=== PATIENT | female | born 1985 | race Caucasian/White ===

== ENCOUNTER → 2016-03-12 | Outpatient (CLI) | payer OTHER ==
[~2016-03-12] MED LIST: BCPILLS PO; FERR1TAB23; OXYC-57 PO; PRENTAB26 PO
[2016-03-12 12:52] LABS: GTGD 50 Grams
[2016-03-13 12:18] LABS: AFP CONCENTRATION 17.5 NG/ML; AFP MULTIPLE OF MEDIAN 0.51; AFPTS GESTATIONAL AGE 18.1 WEEKS; AFPTS INSULIN DEP DIABETIC? NO; AFPTS MATERNAL WT 218 LBS; ALPHA-FETOPROTEIN RACE CAUCASIAN=W; HISTORY OF NTD NO; REPEAT SAMPLE? NO
== END | disposition home or self-care (01) ==
LOC: C.LAB1850 09:20
PROVIDERS: ATTEND Obstetrics & Gynecology
DX: Z34.82 Encounter for supervision of other normal pregnancy, second trimester (principal)

== ENCOUNTER → 2016-05-28 | Outpatient (CLI) | payer OTHER ==
[2016-05-28 11:09] LABS: HEMATOCRIT 32.6 % (37-47)
[2016-05-28 11:56] LABS: URINE APPEARANCE CLEAR (CLEAR); URINE BILIRUBIN NEG (NEG); URINE COLOR YELLOW; URINE EPITHELIAL CELL AUTO >30 /lpf (0-5); URINE NITRITE NEG (NEG); URINE SPECIFIC GRAVITY 1.013 (1.000-1.030); UROBILINOGEN NEG (NEG)
[2016-05-28 12:00] LABS: MANUAL MICROSCOPIC REQUIRED? NO; REVIEW REQ? NO
[2016-05-28 12:17] LABS: GTGD 50 Grams
== END | disposition home or self-care (01) ==
LOC: C.LAB1850 10:10
PROVIDERS: ATTEND Obstetrics & Gynecology
DX: Z34.83 Encounter for supervision of other normal pregnancy, third trimester (principal)

== ENCOUNTER → 2016-06-05 | Outpatient (CLI) | payer OTHER | END | disposition home or self-care (01) | LOC: C.CPL 14:15 | PROVIDERS: ATTEND Obstetrics & Gynecology | DX: O36.8991 Maternal care for other specified fetal problems, unspecified trimester, fetus 1 (principal); Z3A.00 Weeks of gestation of pregnancy not specified ==

== ENCOUNTER → 2016-07-16 | Outpatient (CLI) | payer OTHER | END | disposition home or self-care (01) | LOC: C.LABSPEC 14:28 | PROVIDERS: ATTEND Obstetrics & Gynecology | DX: Z34.83 Encounter for supervision of other normal pregnancy, third trimester (principal) ==

== ENCOUNTER 2016-08-18 15:18 | Inpatient (IN) | payer OTHER ==
[~2016-08-18] VITALS: Ht 167.6 cm; Wt 110.5 kg
[2016-08-18] MEDS ORDERED: FERR1TAB23 (16:21)
[2016-08-18] MEDS ORDERED: PRENTAB26 PO (16:21)
[2016-08-18 16:23] VITALS: Ht 167.6 cm; Wt 110.5 kg
[2016-08-18 16:32] LABS: MANUAL MICROSCOPIC REQUIRED? NO; REVIEW REQ? NO; URINE APPEARANCE CLOUDY (CLEAR); URINE BILIRUBIN NEG (NEG); URINE COLOR YELLOW; URINE EPITHELIAL CELL AUTO >30 /lpf (0-5); URINE NITRITE NEG (NEG); URINE SPECIFIC GRAVITY 1.015 (1.000-1.030); UROBILINOGEN NEG (NEG); ZZUR CULT IF INDIC CLEAN CATCH YES
[2016-08-18] MEDS ORDERED: LACTATED RINGER'S 1000ML 1,000 ML IV PRN (17:24)
[2016-08-18] MEDS ORDERED: LACTATED RINGER'S 1000ML 1,000 ML IV SCH (17:24)
[2016-08-18] MEDS ORDERED: BUPIVACAINE 0.25% 30 ML VIAL ONE (17:40)
[2016-08-18] MEDS ORDERED: FENTANYL 2MCG/ML ROPIV 1.25MG/ML 100ML BAG EPI ONE (17:41)
[2016-08-18] MEDS ORDERED: EpHEDrine SULFATE INJ 50 MG/ML AMP ONE (17:41)
[2016-08-18] MEDS ORDERED: FENTANYL CITRATE INJ 50 MCG/1 ML 2 ML VIAL ONE (17:41)
[2016-08-18] MEDS ORDERED: OXYTOCIN 30 UNITS/500ML NSS IV ONE (17:51)
[2016-08-18 18:02] LABS: HEMATOCRIT 34.5 % (37-47); MEAN CORPUSCULAR HEMOGLOBIN 28.6 pg (25-34); MEAN CORPUSCULAR HGB CONC 32.5 g/dl (32-36); MEAN PLATELET VOLUME 9.6 fL (7.4-10.4); PLATELET COUNT 369 K/uL (130-400); RED BLOOD COUNT 3.92 M/uL (4.2-5.4); WHITE BLOOD COUNT 15.74 K/uL (4.8-10.8)
[2016-08-18] MEDS ORDERED: LACTATED RINGER'S 1000ML 500 ML IV PRN (18:50)
[2016-08-18] MEDS ORDERED: NALOXONE HCL INJ 1 MG in SODIUM CHLORIDE 0.9% 1000ML 1,000 ML IV PRN (18:50)
[2016-08-18] MEDS ORDERED: EpHEDrine SULFATE INJ 50 MG/ML AMP IV PRN (19:00)
[2016-08-18] MEDS ORDERED: FENTANYL 2MCG/ML ROPIV 1.25MG/ML 100ML BAG EPI PRN (19:00)
[2016-08-18] MEDS ORDERED: PROMETHAZINE HCL INJ 6.25 MG in SODIUM CHLORIDE 0.9% 50ML 50 ML IV PRN (19:00)
[2016-08-18] MEDS ORDERED: NALOXONE HCL INJ 0.4 MG/1 ML VIAL/CARP IV PRN (19:00)
[2016-08-18] MEDS ORDERED: ONDANSETRON INJ 2 MG/ML 2 ML VIAL IV PRN (19:00)
[2016-08-18] MEDS ORDERED: DiphenhydrAMINE HCL 50 MG/ML VIAL IV PRN (19:00)
[2016-08-18] MEDS ORDERED: NALBUPHINE HCL INJ 10 MG/ML AMP IV PRN (19:00)
[2016-08-18] MEDS: AMPICILLIN IV 2,000 MG in SODIUM CHLOR 0.9% AD-VAN 100ML 100 ML IV SCH (23:52)
[2016-08-19] VITALS (7 sets, daily range): BP systolic 116–132; BP diastolic 74–87; PULSE 77–99; TEMP 36.6–37.9; O2SAT 96–99
[2016-08-19] MEDS ORDERED: HYDROCORTISONE ACETATE 25 MG SUPP PR PRN (00:30)
[2016-08-19] MEDS ORDERED: OXYTOCIN 30 UNITS/500ML NSS IV PRN (00:30)
[2016-08-19] MEDS ORDERED: BENZOCAINE 20% AER SPR 82.5 GM CAN EXT PRN (00:30)
[2016-08-19] MEDS ORDERED: LANOLIN OINT EXT PRN ×2 (00:30)
[2016-08-19] MEDS ORDERED: IBUPROFEN 600 MG TAB PO PRN (00:30)
[2016-08-19] MEDS ORDERED: SUPERCREAM 0.870 % 15GM JAR EXT PRN (00:30)
[2016-08-19] MEDS ORDERED: OXYCODONE/ACETAMINOPHEN 5-325 TAB PO PRN (00:30)
[2016-08-19] MEDS ORDERED: GENTAMICIN IV SCH (01:00)
[2016-08-19] MEDS ORDERED: DEXTROSE 5% IV SCH (01:00)
[2016-08-19] MEDS: ACETAMINOPHEN 325 MG TAB PO PRN ×2 (01:00→12:28)
[2016-08-19] MEDS: DEXTROSE 5% IV SCH ×3 (02:25→18:43)
[2016-08-19] MEDS: GENTAMICIN IV SCH ×3 (02:25→18:43)
[2016-08-19] MEDS: AMPICILLIN IV 2,000 MG in SODIUM CHLOR 0.9% AD-VAN 100ML 100 ML IV SCH ×3 (05:48→18:07)
[2016-08-19] MEDS ORDERED: ACETAMINOPHEN 500 MG TAB PO SCH (06:00)
--- NOTE | 2016-08-19 07:40 | Progress Note ---
Subjective Aug 19, 2016. Subjective conversation w/ patient, physical exam Ambulation: ambulating normally Voiding: no voiding problems Passing Gas: Yes Diet Tolerance: Regular Diet Lochia: Moderate Feeding Type: Bottle Feeding Pain: controlled Review of Systems Constitutional: No problem reported Respiratory: No problem reported Cardiac: No problem reported Breast: No problem reported Abdomen: No problem reported Female : No problem reported Objective Vital Signs Date Time Temp Pulse Resp B/P (MAP) Pulse Ox O2 Delivery O2 Flow Rate FiO2 08/19/16 07:00 36.8 77 20 116/74 (88) 98 Room Air 08/19/16 03:30 37.0 94 18 129/79 (96) 96 Room Air 08/19/16 02:30 37.9 99 18 132/77 (95) Room Air 08/19/16 02:30 Room Air Physical Exam General Appearance: WELL-APPEARING, NO APPARENT DISTRESS Respiratory/Chest: no respiratory distress Cardiovascular: regular rate, rhythm Abdomen: non tender, soft Fundus: Firm Extremities: normal inspection Laboratory Results Last 24 Hours Test 08/18/16 17:50 White Blood Count 15.74 K/uL Red Blood Count 3.92 M/uL Hemoglobin 11.2 g/dL Hematocrit 34.5 % Mean Corpuscular Volume 88.0 fL Mean Corpuscular Hemoglobin 28.6 pg Mean Corpuscular Hemoglobin Concent 32.5 g/dl RDW Standard Deviation 50.8 fL RDW Coefficient of Variation 15.7 % Platelet Count 369 K/uL Mean Platelet Volume 9.6 fL Assessment and Plan Day#: 1 Continue Routine Care: PPD#1 - at 11:57pm last night Doing well, no complaints. Continue routine care.
[2016-08-19] MEDS: DOCUSATE SODIUM 100 MG CAP PO SCH ×2 (07:53→19:41)
--- NOTE | 2016-08-19 08:22 | Anesthesia Procedure Note ---
Anesthesia Epidural Removal Nt Date & Time Aug 19, 2016 at 08:22 Vital Signs Pain Intensity: 1.0 Vital Signs Past 12 Hours Date Time Temp Pulse Resp B/P (MAP) Pulse Ox O2 Delivery O2 Flow Rate FiO2 08/19/16 07:00 36.8 77 20 116/74 (88) 98 Room Air 08/19/16 03:30 37.0 94 18 129/79 (96) 96 Room Air 08/19/16 02:30 37.9 99 18 132/77 (95) Room Air 08/19/16 02:30 Room Air Notes Mental Status: alert / awake / arousable, participated in evaluation Nausea / Vomiting: adequately controlled Pain: adequately controlled Airway Patency, RR, SpO2: stable & adequate BP & HR: stable & adequate Hydration State: stable & adequate Neuraxial Anesthesia: was administered Anesthetic Complications: no major complications apparent, pt satisfied with anesthetic care Epidural: removed without complications, with tip intact
--- NOTE | 2016-08-19 11:45 | DELIVERY SUMMARY ---
DATE OF OPERATION: 08/18/2016 DATE OF DELIVERY: 08/18/2016. ESTIMATED BLOOD LOSS: 300 mL. FINDINGS: Viable male with Apgars of 8 and 9. Weight is pending; please see nursery records. Thick meconium and chorioamnionitis. PROCEDURE: Spontaneous vaginal delivery. DESCRIPTION OF DELIVERY: The patient progressed to complete with epidural anesthesia. There was maternal and tachycardia; therefore ampicillin and gentamicin were started. Ampicillin was started prior to delivery and delivery happened prior to the ability to start gentamicin as well. These will be continued for 24 hours post delivery for chorioamnionitis. The patient progressed to complete with epidural anesthesia and labored down due to maternal exhaustion. She then began to feel extreme pressure and began to push. The baby delivered from a cephalic presentation with the head in left occiput anterior position. The head delivered, followed by the anterior shoulder, followed by the posterior shoulder and followed by the body. She was preemptively placed in Ness position for delivery due to suspicion of large baby and concern for potential shoulder dystocia, although this did not occur. The baby was warmed and dried, placed on the mother's abdomen and a spontaneous cry was heard. The cord was doubly clamped and cut. Segment was retained for cord gases. The baby was handed off to the waiting pediatrics team. The placenta was delivered spontaneously intact with a 3-vessel cord. Membranes were noted to be stained with meconium. The uterus and vagina were cleared of all clots and debris. Pitocin was given and the uterus began to become firm. The cervix, vagina and perineum were inspected; no ulcerations were noted. The mother and baby recovered well in the room. Sponge, instruments and needle counts were correct x2 at the conclusion of the delivery. I attest to the content of the Intraoperative Record and any orders documented therein. Any exception s are noted below.
[2016-08-20] VITALS (7 sets, daily range): BP systolic 111–142; BP diastolic 60–88; PULSE 76–90; TEMP 36.7–37.1; O2SAT 96–100
[2016-08-20 07:05] LABS: HEMATOCRIT 30.8 % (37-47)
--- NOTE | 2016-08-20 07:49 | Progress Note ---
Subjective Aug 20, 2016. Subjective conversation w/ patient, physical exam Ambulation: ambulating normally Voiding: no voiding problems Passing Gas: Yes Diet Tolerance: Regular Diet Lochia: Moderate Feeding Type: Bottle Feeding Pain: controlled Review of Systems Constitutional: No problem reported Respiratory: No problem reported Cardiac: No problem reported Breast: No problem reported Abdomen: No problem reported Female : No problem reported Objective Vital Signs Date Time Temp Pulse Resp B/P (MAP) Pulse Ox O2 Delivery O2 Flow Rate FiO2 08/20/16 04:20 36.7 84 18 127/82 (97) 97 Room Air 08/19/16 23:00 97 Room Air 08/19/16 23:00 36.7 84 18 126/85 (99) 97 Room Air 08/19/16 19:45 36.6 81 18 128/84 (99) 99 Room Air 08/19/16 16:15 Room Air 08/19/16 16:15 36.7 93 20 128/87 (101) 98 Room Air 08/19/16 12:10 36.9 80 20 127/82 (97) 97 Room Air 08/19/16 08:00 Room Air Physical Exam General Appearance: WELL-APPEARING, NO APPARENT DISTRESS Respiratory/Chest: no respiratory distress Cardiovascular: regular rate, rhythm Abdomen: non tender, soft Fundus: Firm Extremities: normal inspection Laboratory Results Last 24 Hours Test 08/20/16 06:33 Hemoglobin 9.9 g/dL Hematocrit 30.8 % Assessment and Plan Day#: 2 Continue Routine Care: Doing well PPD#2. Discharge to home today, instructions discussed. Followup 6w in office.
--- NOTE | 2016-08-20 07:51 | Discharge Instructions ---
Discharge Instructions Date of Service Aug 20, 2016. Admission Reason for Admission: Labor Check Discharge Discharge Diagnosis / Problem: s/p vaginal delivery Discharge Goals Goal(s): Routine recovery after delivery Activity Recommendations Activity Limitations: per Instructions/Follow-up section . Instructions / Follow-Up Instructions / Follow-Up ACTIVITY RECOMMENDATIONS: * Gradual return to full activity over the next 2-3 weeks. * No lifting - nothing heavier than baby over the next 2-3 weeks. * Do not engage in vigorous exercise, sexual activity or sports until cleared by your physician. * Do not drive or operate any motorized equipment until cleared by your physician. * You may shower/bathe daily. MEDICATIONS: For discomfort or pain, you may use Acetaminophen (Tylenol), Ibuprofen (Advil), or Naproxen (Aleve) following the package directions. For constipation you may use Colace following the package directions. BREAST CARE: If you are not breast feeding: * Wear a supportive bra 24 hours a day for one to two weeks. * Avoid stimulating your breasts and nipples as much as possible during the first few weeks after delivery. * When taking a shower, have the warm water hit your back, not breasts. * When your breasts feel full, apply ice packs. Usually three to four times a day helps ease the discomfort. * Take a mild pain medication (Tylenol / Motrin) when you are uncomfortable. If breast feeding: * Use breast milk to lubricate nipples. Lansinoh cream may be used for sore nipples. You do not need to remove cream prior to breast feeding. If using a different brand of cream, check the label for directions regarding removal of cream prior to nursing. * Wear a supportive bra. * If having problems with breasts or breast feeding, call a construction safety consultant or your health care provider. EPISIOTOMY CARE: After delivery, if you have an episiotomy (stitches), the following steps will ease discomfort and aid healing. * For the first 24 hours after delivery, place ice packs next to your episiotomy to help reduce swelling. * After the first 24 hour-period, sitz baths, either portable or in the tub, are suggested. A shower with a shower arm sprayed over the episiotomy may be comforting. * Blaire care should be done after each voiding and bowel movement. Squirt warm water from a plastic bottle over the perineum (region of the body between the anus and urinary opening) and pat dry. * Use Dermoplast to ease discomfort. Shake container. [place] directly over the episiotomy. Place a Tucks on a clean sanitary pad next to your episiotomy. SPECIAL CARE INSTRUCTIONS: When you are discharged from the hospital, it is important for you to follow the instructions listed below: * During the first week at home, you should be able to care for yourself and your baby. In addition, the usual light household activities are encouraged. * Limit your activities to the way you feel. Do not try to clean the house or move furniture. Be sensible. * If you actively engage in sports and have done so up until the time of your delivery, you may resume these activities as soon as you feel able. This may take up to one month or even longer. Use good judgment. * Continue to take your vitamins for at least six weeks after the of your baby. * Your diet need not be limited unless you were on a special diet before your delivery. Breast-feeding mothers need around 2500 calories per day and at least 64-80 ounces of fluid per day (8 to 10 glasses). * You should eat foods from the four major food groups. Crash diets or fad diets are to be avoided. Eating lean meats, fresh fruits and vegetables, low-fat dairy products, high fiber foods and a regular exercise program, will help you get back to your pre- weight without putting your health at risk. * Constipation is sometimes a problem after delivery. Take a mild laxative as needed. If breast feeding, Milk of Magnesia is acceptable to use. You may use a suppository or Fleets enema if no episiotomy. * A daily shower or tub bath is suggested. Be sure to thoroughly and gently dry the perineum. * A bloody vaginal discharge will usually continue until around four weeks post . A small amount of bleeding may continue for as long as six weeks. Vaginal discharge changes from the bright red bleeding after delivery to pink then brownish and finally yellowish-pink before becoming white and disappearing. * Bleeding may increase with activity. Your first period may come in 4-8 weeks. If you are breast feeding, your period may be delayed even longer. * [place] (sex) can begin whenever both you and your partner feel comfortable and do not have any form of genital infection. It is recommended that you wait at least six weeks for internal and external healing to occur. If you have questions, please talk to your health care practitioner. A condom should be used to prevent infection and . * Foreplay, gentle intercourse and lubrication is very important the first several times to prevent pain. A water-based lubricant such as K-Y jelly or Astroglide may be used. * If you have RH negative blood and your baby is RH positive, you will receive RHOGAM by injection prior to discharge. The nurse will give you a card to keep with you that has the date and place that you received RHOGAM after delivery. * During your care, you had a Rubella screen done to check for the presence of rubella antibodies in your blood. If your test was negative, you will receive a Rubella vaccine prior to discharge. This vaccine may cause a fever, soreness at the injection site and flu-like symptoms. If these symptoms persist, notify your health care practitioner. is not advised for one month after a Rubella vaccine. * Verbalizes understanding of car seat law as reviewed with patient nursing. * Car Seat hand-out given and reviewed with patient by nursing. * Shaken baby information reviewed with patient by nursing. Call you doctor if: * Heavy bleeding (saturating several pads an hour) or passing clots the size of your fist. * A fever >101 degrees F (38.3 degrees C) on two occasions four hours apart and /or chills. * Unusual pain in the pelvic or vaginal areas. * "Baby Blues" lasting longer than two weeks. If you have any questions or concerns, call your health care practitioner at . FOLLOW UP VISIT: * Please call the office at to schedule a 6 week examination. It is important you keep this appointment. It is important for you to make arrangements for either yearly or twice yearly check-ups thereafter. Current Hospital Diet Patient's current hospital diet: Regular OB Diet Discharge Diet Recommended Diet: Regular OB Diet Pending Studies Studies pending at discharge: no Medical Emergencies . Who to Call and When: Medical Emergencies: If at any time you feel your situation is an emergency, please call 911 immediately. . Non-Emergent Contact Non-Emergency issues call your: Primary Care Provider, Verification Clerk . . "Provider Documentation" section prepared by Kathie Cummings. . VTE Core Measure Inpt VTE Proph given/why not?: Treatment not indicated
[2016-08-20] MEDS: DOCUSATE SODIUM 100 MG CAP PO SCH ×2 (07:53→20:00)
[2016-08-20] MEDS ORDERED: BISACODYL 5 MG TABEC PO SCH (20:00)
== END 2016-08-20 21:46 | disposition home or self-care (01) | DRG 774 ==
LOC: C.OPB 15:18 → C.LD 15:18 → UNDOADMIN 16:00 → C.LD 16:00 → C.OPB 16:00 → C.LD 17:26 → C.OBG 08-19 02:16
PROVIDERS: ADMIT Obstetrics & Gynecology; ATTEND Obstetrics & Gynecology
PROC: 10E0XZZ Delivery of Products of Conception, External Approach (ICD-10-PCS; principal; 2016-08-18)
DX: O48.0 Post-term pregnancy (principal); O99.42 Diseases of the circulatory system complicating childbirth; O41.1230 Chorioamnionitis, third trimester, not applicable or unspecified; O75.81 Maternal exhaustion complicating labor and delivery; O76 Abnormality in fetal heart rate and rhythm complicating labor and delivery; R00.0 Tachycardia, unspecified; O99.285 Endocrine, nutritional and metabolic diseases complicating the puerperium; E07.9 Disorder of thyroid, unspecified; O77.0 Labor and delivery complicated by meconium in amniotic fluid; Z37.0 Single live birth; Z3A.40 40 weeks gestation of pregnancy

== ENCOUNTER → 2016-09-06 | Outpatient (CLI) | payer OTHER ==
[~2016-09-06] MED LIST changes: -FERR1TAB23
[2016-09-06 18:14] LABS: MEAN CELL VOLUME 89.8 fL (80-100); MEAN CORPUSCULAR HGB CONC 32.3 g/dl (32-36); MEAN PLATELET VOLUME 11.6 fL (7.4-10.4); PLATELET COUNT 410 K/uL (130-400); WHITE BLOOD COUNT 7.69 K/uL (4.8-10.8)
[2016-09-06 18:22] LABS: ALT/SGPT 278 U/L (12-78); AMYLASE 176 U/L (25-115); BLOOD UREA NITROGEN 12 mg/dl (7-18); BUN/CREATININE RATIO 10.5 (10-20); CALCIUM 9.6 mg/dl (8.5-10.1); CARBON DIOXIDE 29 mmol/L (21-32); CHLORIDE 106 mmol/L (98-107); GLUCOSE 95 mg/dl (70-99); SODIUM 140 mmol/L (136-145)
[2016-09-06 18:27] LABS: ALKALINE PHOSPHATASE 295 U/L (45-117); AST/SGOT 235 U/L (15-37)
== END | disposition home or self-care (01) ==
LOC: C.LABPVFM 13:28
PROVIDERS: ATTEND Nurse Practitioner Family
DX: R10.13 Epigastric pain (principal); R11.10 Vomiting, unspecified

== ENCOUNTER 2016-09-07 15:31 | Emergency (ER) | payer OTHER ==
[~2016-09-07] VITALS: Ht 167.6 cm; Wt 93.0 kg
[~2016-09-07 15:31] MED LIST changes: -BCPILLS PO; -OXYC-57 PO
[2016-09-07 15:36] VITALS: TEMP 36.9; Ht 167.6 cm; Wt 93.0 kg
[2016-09-07 16:45] LABS: BASO % 0.6 %; BASO ABS # 0.04 K/uL (0-0.2); COMPLETE YES; EOS % 2.7 %; HEMATOCRIT 42.7 % (37-47); IG% 0.1 %; LYMPH % 32.5 %; LYMPH ABS # 2.29 K/uL (1.2-3.4); MEAN CELL VOLUME 87.7 fL (80-100); MEAN CORPUSCULAR HEMOGLOBIN 28.1 pg (25-34); MEAN CORPUSCULAR HGB CONC 32.1 g/dl (32-36); MEAN PLATELET VOLUME 10.6 fL (7.4-10.4); MONO % 9.5 %; NEUT % 54.6 %; PLATELET COUNT 390 K/uL (130-400); RED BLOOD COUNT 4.87 M/uL (4.2-5.4); WHITE BLOOD COUNT 7.04 K/uL (4.8-10.8)
[2016-09-07 17:07] LABS: BUN/CREATININE RATIO 10.9 (10-20); CALCIUM 9.3 mg/dl (8.5-10.1); POTASSIUM 3.7 mmol/L (3.5-5.1)
--- NOTE | 2016-09-07 17:37 | DIAGNOSTIC IMAGING REPORT ---
ULTRASOUND RIGHT UPPER QUADRANT ABDOMEN CLINICAL HISTORY: Right upper quadrant abdominal pain. COMPARISON STUDY: No priors. TECHNIQUE: Real-time, grayscale, and color flow sonography of the right upper quadrant of the abdomen was performed. Images are reviewed in the transverse and longitudinal planes. FINDINGS: Liver: The liver is mildly enlarged measuring over 18 cm in length. The liver demonstrates heterogeneously increased echotexture suggesting steatosis. There is no intrahepatic biliary ductal dilatation. The main portal vein is patent. Gallbladder: There are numerous calcified gallstones identified. There is no gallbladder wall thickening or pericholecystic fluid. A sonographic Sam's sign is reportedly absent. The common bile duct measures up to 0.4 cm in diameter. Pancreas: Visualized portions of the pancreatic head and body are normal in appearance. The splenic vein is patent. Right kidney: Survey images of the right kidney demonstrate normal size and echotexture. There is no hydronephrosis. Ascites: None. IMPRESSION: 1. Cholelithiasis without sonographic evidence of acute cholecystitis. 2. Mild hepatomegaly and hepatic steatosis. Electronically signed by: Nicolas Calderon M.D. 09/07/2016 5:36 PM Dictated Date/Time: 09/07/2016 5:33 PM
[2016-09-07 17:47] LABS: URINE APPEARANCE CLEAR (CLEAR); URINE BILIRUBIN NEG (NEG); URINE COLOR YELLOW; URINE EPITHELIAL CELL AUTO >30 /lpf (0-5); URINE NITRITE NEG (NEG); URINE SPECIFIC GRAVITY 1.021 (1.000-1.030); UROBILINOGEN NEG (NEG)
[2016-09-07 17:48] LABS: MANUAL MICROSCOPIC REQUIRED? NO; REVIEW REQ? NO
[2016-09-07 18:39] VITALS: BP 141/83; PULSE 71; O2SAT 100
--- NOTE | 2016-09-07 23:48 | EMERGENCY ROOM VISIT NOTE ---
History Report prepared by Kirstin: Melany Barajas Under the Supervision of: Dr. Renato Waller M.D. First contact with patient: 15:45 Chief Complaint: GI ASSESSMENT Stated Complaint: GALLBLADDER ISSUE Nursing Triage Summary: Patient states she was sent by pcp for "gallbladder issues" Patient reports she is two weeks post and was told she has elevated AST, ALT and WBC. History of Present Illness The patient is a 30 year old female who presents to the Emergency Room with complaints of intermittent epigastric abdominal pain that began several months ago. She currently rates her discomfort as a 5/10 in severity. The patient states that she is currently three weeks post- and has noticed colicky epigastric abdominal pain for the past several months. She states that the first time she noticed the pain was when she was [age] months . The patient states that her pain was resolved with emesis. She states that her second episode of the pain was two weeks prior to delivery, noting that it also resolved with an episode of emesis. The patient states that the most severe pain was two days ago. She states that she vomited three times without any relief of her symptoms. The patient states that the pain finally resolved that evening. She states that she developed pain yesterday that was resolved with emesis. The patient states that she saw her PCP yesterday who ordered blood work. They called her and recommended she come to the emergency department for her abnormal lab findings. She denies any pain today. The patient denies the pain being worsened with food. She reports normal eating and drinking. The patient denies any alcohol use. She denies any pertinent past medical history or being on any daily medications. The patient denies the pain being sharp in nature. She denies any chest pain, fever, chills, urinary symptoms, melena, or hematochezia. The patient states that she still has some slight bleeding from her delivery, but notes that it has gotten better. Source of History: patient Onset: several months Position: abdomen (epigastric) Symptom Intensity: 5/10 Quality: other (colicky) Timing: intermittent Modifying Factors (Relieving): other (emesis) Associated Symptoms: + vomiting, No fevers, No chills, No chest pain, No melena, No hematochezia, No urinary symptoms Review of Systems See HPI for pertinent positives & negatives. A total of 10 systems reviewed and were otherwise negative. Past Medical & Surgical Medical Problems: (1) Spontaneous onset of labor (2) Uterine contractions Family History Cancer Diabetes mellitus Heart disease Hypertension Lung disease Social History Smoking Status: Never Smoker Smokeless Tobacco Use: No Alcohol Use: none Marital Status: Housing Status: lives with family Occupation Status: employed Current/Historical Medications No Active Prescriptions or Reported Meds Allergies Coded Allergies: Ibuprofen (Verified Allergy, Mild, ANAPHYLAXIS, 08/19/16) swelling Physical Exam Vital Signs Date Time Temp Pulse Resp B/P (MAP) Pulse Ox O2 Delivery O2 Flow Rate FiO2 09/07/16 18:39 71 20 141/83 100 09/07/16 18:05 67 18 114/80 98 Room Air 09/07/16 16:55 74 20 138/79 97 Room Air 09/07/16 15:36 36.9 70 18 130/83 97 Room Air Physical Exam Constitutional: Vital signs reviewed. Eyes: Pupils are equal round reactive to light. Conjunctiva are noninjected. ENT: Pharynx is clear without erythema or exudate. Mucous membranes are moist. Neck supple without meningeal signs. Respiratory: Clear to auscultation bilaterally. Breath sounds are equal bilaterally. Cardiovascular: Regular rate and rhythm. No rubs or gallops. GI: Soft, nondistended and nontender. Bowel sounds are present. Musculoskeletal: No peripheral edema. No lower extremity tenderness. Integumentary: No cyanosis. Neurological: The patient is awake and alert. No focal deficits. Psychiatric: Normal affect. Medical Decision & Procedures ER Provider Diagnostic Interpretation: US results as stated below per my review and radiologist interpretation. ULTRASOUND RIGHT UPPER QUADRANT ABDOMEN CLINICAL HISTORY: Right upper quadrant abdominal pain. COMPARISON STUDY: No priors. TECHNIQUE: Real-time, grayscale, and color flow sonography of the right upper quadrant of the abdomen was performed. Images are reviewed in the transverse and longitudinal planes. FINDINGS: Liver: The liver is mildly enlarged measuring over 18 cm in length. The liver demonstrates heterogeneously increased echotexture suggesting steatosis. There is no intrahepatic biliary ductal dilatation. The main portal vein is patent. Gallbladder: There are numerous calcified gallstones identified. There is no gallbladder wall thickening or pericholecystic fluid. A sonographic Sam's sign is reportedly absent. The common bile duct measures up to 0.4 cm in diameter. Pancreas: Visualized portions of the pancreatic head and body are normal in appearance. The splenic vein is patent. Right kidney: Survey images of the right kidney demonstrate normal size and echotexture. There is no hydronephrosis. Ascites: None. IMPRESSION: 1. Cholelithiasis without sonographic evidence of acute cholecystitis. 2. Mild hepatomegaly and hepatic steatosis. Electronically signed by: Nicolas Calderon M.D. 09/07/2016 5:36 PM Dictated Date/Time: 09/07/2016 5:33 PM Laboratory Results 09/07/16 16:25 Red Blood Count 4.87, Mean Corpuscular Volume 87.7, Mean Corpuscular Hemoglobin 28.1, Mean Corpuscular Hemoglobin Concent 32.1, Mean Platelet Volume 10.6, Neutrophils (%) (Auto) 54.6, Lymphocytes (%) (Auto) 32.5, Monocytes (%) (Auto) 9.5, Eosinophils (%) (Auto) 2.7, Basophils (%) (Auto) 0.6, Neutrophils # (Auto) 3.84, Lymphocytes # (Auto) 2.29, Monocytes # (Auto) 0.67, Eosinophils # (Auto) 0.19, Basophils # (Auto) 0.04 09/07/16 16:25 Test 09/07/16 16:25 09/07/16 17:10 White Blood Count 7.04 K/uL (4.8-10.8) Red Blood Count 4.87 M/uL (4.2-5.4) Hemoglobin 13.7 g/dL (12.0-16.0) Hematocrit 42.7 % (37-47) Mean Corpuscular Volume 87.7 fL (80-100) Mean Corpuscular Hemoglobin 28.1 pg (25-34) Mean Corpuscular Hemoglobin Concent 32.1 g/dl (32-36) Platelet Count 390 K/uL (130-400) Mean Platelet Volume 10.6 fL (7.4-10.4) Neutrophils (%) (Auto) 54.6 % Lymphocytes (%) (Auto) 32.5 % Monocytes (%) (Auto) 9.5 % Eosinophils (%) (Auto) 2.7 % Basophils (%) (Auto) 0.6 % Neutrophils # (Auto) 3.84 K/uL (1.4-6.5) Lymphocytes # (Auto) 2.29 K/uL (1.2-3.4) Monocytes # (Auto) 0.67 K/uL (0.11-0.59) Eosinophils # (Auto) 0.19 K/uL (0-0.5) Basophils # (Auto) 0.04 K/uL (0-0.2) RDW Standard Deviation 49.9 fL (36.4-46.3) RDW Coefficient of Variation 15.5 % (11.5-14.5) Immature Granulocyte % (Auto) 0.1 % Immature Granulocyte # (Auto) 0.01 K/uL (0.00-0.02) Anion Gap 5.0 mmol/L (3-11) Est Creatinine Clear Calc Drug Dose 96.2 ml/min Estimated GFR () 88.8 Estimated GFR (Non- 76.6 BUN/Creatinine Ratio 10.9 (10-20) Calcium Level 9.3 mg/dl (8.5-10.1) Total Bilirubin 0.7 mg/dl (0.2-1) Direct Bilirubin 0.2 mg/dl (0-0.2) Aspartate Amino Transf (AST/SGOT) 44 U/L (15-37) Alanine Aminotransferase (ALT/SGPT) 158 U/L (12-78) Alkaline Phosphatase 268 U/L (45-117) Total Protein 7.7 gm/dl (6.4-8.2) Albumin 3.8 gm/dl (3.4-5.0) Lipase 569 U/L (73-393) Urine Color YELLOW Urine Appearance CLEAR (CLEAR) Urine pH 5.0 (4.5-7.5) Urine Specific [place] 1.021 (1.000-1.030) Urine Protein NEG (NEG) Urine Glucose (UA) NEG (NEG) Urine Ketones NEG (NEG) Urine Occult Blood TRACE (NEG) Urine Nitrite NEG (NEG) Urine Bilirubin NEG (NEG) Urine Urobilinogen NEG (NEG) Urine Leukocyte Esterase SMALL (NEG) Urine WBC (Auto) 5-10 /hpf (0-5) Urine RBC (Auto) 0-4 /hpf (0-4) Urine Hyaline Casts (Auto) 5-10 /lpf (0-5) Urine Epithelial Cells (Auto) >30 /lpf (0-5) Urine Bacteria (Auto) NEG (NEG) Laboratory results as reviewed by me. ED Course 1548: The patient was evaluated in room B10. A complete history and physical exam was performed by the medical student. 163: The patient was evaluated in room B10. A complete history and physical exam was performed. 180: I discussed the patients case with Dr. Reyes, General Surgery. He states to offer to stay for further evaluation and treatment, but states that if she declines to have her follow up in the office. 1811: I reevaluated the patient and she is resting comfortably. I offered admission to her, but states that she really wants to go home. She states that she will stay on a liquid diet and return with any worsening symptoms. I discussed all the exam findings with her and I discussed the treatment plan. She verbalized complete understanding and agreement. She is ready to go home. Medical Decision This is a 30-year-old female who presents with intermittent abdominal pain. Differential diagnosis includes gallstone pancreatitis, cholelithiasis, cholecystitis, choledocholithiasis, mass. I did perform a limited focused review of portions of the patient's old chart on the electronic medical record. The patient had a spontaneous vaginal delivery August 18, she received Ampicillin and Gentamicin for Chorioamnionitis. She had blood work done yesterday that showed abnormal LFTs, Bilirubin 2.6, lipase of 3600. Blood Pressure Screening: Patient was found to have an elevated blood pressure and was referred to their primary doctor for recheck and further treatment. Medication Reconciliation: I attest that I have personally reviewed the patient' s current medication list. I did evaluate the patient as noted above. The patient is presenting with lab work consistent with gallstone pancreatitis. She currently has no pain or tenderness on examination. She feels well and has no complaints currently. IV access was established. I did order and personally review the patient's urinalysis as described above. She denies any urinary symptoms. I did order and review the patient's blood work as noted in the electronic medical record. Her transaminases are significantly improved. She had does not have a white blood cell count elevation. Her lipase is significantly improved. Her bilirubin is normal. Alkaline phosphatase remains elevated. I did order an ultrasound of the right upper quadrant. I did review the images myself as well as the radiology report as described above. She has cholelithiasis without cholecystitis. I did reassess the patient. She continues to be asymptomatic. I did discuss the test results with the patient. She does not wish to be admitted to the hospital. I did discuss the case with Dr. Rivera of surgery. He will see her as an outpatient. The patient was advised to stay on a liquid diet and to return immediately should she have any recurrence of her pain or develop any new symptoms such as vomiting or fever. Consults Time Called: 1800 Consulting Physician: Dr. Reyes, General Surgery Returned Call: [phone] I discussed the patients case with Dr. Reyes, General Surgery. He states to offer to stay for further evaluation and treatment, but states that if she declines to have her follow up in the office. Impression Primary Impression: Gall stone pancreatitis Additional Impression: Cholelithiasis Scribe Attestation The scribe's documentation has been prepared under my direct and personally reviewed by me in its entirety. I confirm that the note above accurately reflects all work, treatment, procedures, and medical decision making performed by me. Departure Information Dispostion Home / Self-Care Prescriptions No Active Prescriptions or Reported Meds Referrals Geneva Leach (PCP) Bj Reyes M.D. Forms HOME CARE DOCUMENTATION FORM, IMPORTANT VISIT INFORMATION Patient Instructions Gallstones Dc, My [facility], Pancreatitis Acute Dc Additional Instructions You have been examined and treated today on an emergency basis only. This is not a substitute for, or an effort to provide, complete comprehensive medical care. It is impossible to recognize and treat all injuries or illnesses in a single emergency department visit. It is therefore important that you follow up closely with your physician and Dr. Rivera of surgery. Call as soon as possible for an appointment. Return immediately for worsening symptoms or if you develop fever, vomiting, recurrent abdominal pain, yellowing of your skin or any other concerning symptoms. Problem Qualifiers Additional Impression: Cholelithiasis Cholelithiasis location: gallbladder Cholecystitis presence: without cholecystitis Biliary obstruction: without biliary obstruction Qualified Codes: K80.20 - Calculus of gallbladder without cholecystitis without obstruction
== END 2016-09-07 18:43 | disposition home or self-care (01) ==
LOC: C.EDB 15:33
DX: K85.10 Biliary acute pancreatitis without necrosis or infection (principal); K80.20 Calculus of gallbladder without cholecystitis without obstruction; Z83.3 Family history of diabetes mellitus; Z82.49 Family history of ischemic heart disease and other diseases of the circulatory system

== ENCOUNTER → 2016-09-25 | Outpatient (CLI) | payer OTHER ==
[~2016-09-25] MED LIST changes: +BCPILLS PO; +OXYC-57 PO; -PRENTAB26 PO
== END | disposition home or self-care (01) ==
LOC: C.PAPS 13:47
PROVIDERS: ATTEND Obstetrics & Gynecology
DX: Z39.2 Encounter for routine postpartum follow-up (principal)

== ENCOUNTER 2016-10-01 19:41 | Emergency (ER) | payer OTHER ==
[~2016-10-01] VITALS: Ht 167.6 cm; Wt 91.4 kg
[2016-10-01 19:46] VITALS: Ht 167.6 cm; Wt 91.4 kg
--- NOTE | 2016-10-01 20:40 | EMERGENCY ROOM VISIT NOTE ---
History Report prepared by Kirstin: Marily Can Under the Supervision of: Dr. Teetee King M.D. First contact with patient: 20:22 Chief Complaint: ABDOMINAL PAIN Stated Complaint: ABD PAIN Nursing Triage Summary: see triage note History of Present Illness The patient is a 30 year old female who presents to the Emergency Room with complaints of resolved sharp abdominal pain beginning 3 hours ago. The patient states that she has gallstones and had an episode of pain 3 hours ago that lasted 1 hour before she vomited. She reports that her pain has resolved and she is feeling better. She notes that she has an appointment with a surgeon in November due to work and she has these episodes every few weeks. The patient states that she ate cereal and a chicken breast today. She denies any fever. Source of History: patient Onset: 3 hours ago Position: abdomen Quality: sharp Timing: constant Associated Symptoms: + vomiting, No fevers Review of Systems See HPI for pertinent positives & negatives. A total of 10 systems reviewed and were otherwise negative. Past Medical & Surgical Medical Problems: (1) Spontaneous onset of labor (2) Uterine contractions Family History Cancer Diabetes mellitus Heart disease Hypertension Lung disease Social History Smoking Status: Never Smoker Alcohol Use: none Marital Status: Housing Status: lives with family Occupation Status: employed Current/Historical Medications Scheduled Control Pills ( Control Pills), 1 TAB PO DAILY Allergies Coded Allergies: Ibuprofen (Verified Allergy, Mild, ANAPHYLAXIS, 08/19/16) swelling Physical Exam Vital Signs Date Time Temp Pulse Resp B/P (MAP) Pulse Ox O2 Delivery O2 Flow Rate FiO2 10/01/16 21:40 36.9 81 18 138/88 97 10/01/16 19:46 36.9 81 18 138/88 97 Room Air Physical Exam Vital signs reviewed. General: Well-appearing female, in no significant distress. HEENT: No scleral icterus, PERRLA, neck supple. Atraumatic. Cardiovascular: Regular rate and rhythm, no extra sounds. Pulmonary: Clear to auscultation bilaterally, normal work of breathing. Abdomen: Soft, obese, nontender, nondistended, positive bowel sounds. Musculoskeletal: Atraumatic, no peripheral edema. Neurologic: Patient awake alert and oriented x 3 Skin: Warm, dry, no rash Medical Decision & Procedures Laboratory Results 10/01/16 20:20 Red Blood Count 4.52, Mean Corpuscular Volume 89.4, Mean Corpuscular Hemoglobin 29.0, Mean Corpuscular Hemoglobin Concent 32.4, Mean Platelet Volume 10.8, Neutrophils (%) (Auto) 76.8, Lymphocytes (%) (Auto) 12.7, Monocytes (%) (Auto) 9.1, Eosinophils (%) (Auto) 0.8, Basophils (%) (Auto) 0.3, Neutrophils # (Auto) 9.04, Lymphocytes # (Auto) 1.50, Monocytes # (Auto) 1.07, Eosinophils # (Auto) 0.10, Basophils # (Auto) 0.03 10/01/16 20:20 Test 10/01/16 20:20 White Blood Count 11.77 K/uL (4.8-10.8) Red Blood Count 4.52 M/uL (4.2-5.4) Hemoglobin 13.1 g/dL (12.0-16.0) Hematocrit 40.4 % (37-47) Mean Corpuscular Volume 89.4 fL (80-100) Mean Corpuscular Hemoglobin 29.0 pg (25-34) Mean Corpuscular Hemoglobin Concent 32.4 g/dl (32-36) Platelet Count 294 K/uL (130-400) Mean Platelet Volume 10.8 fL (7.4-10.4) Neutrophils (%) (Auto) 76.8 % Lymphocytes (%) (Auto) 12.7 % Monocytes (%) (Auto) 9.1 % Eosinophils (%) (Auto) 0.8 % Basophils (%) (Auto) 0.3 % Neutrophils # (Auto) 9.04 K/uL (1.4-6.5) Lymphocytes # (Auto) 1.50 K/uL (1.2-3.4) Monocytes # (Auto) 1.07 K/uL (0.11-0.59) Eosinophils # (Auto) 0.10 K/uL (0-0.5) Basophils # (Auto) 0.03 K/uL (0-0.2) RDW Standard Deviation 53.3 fL (36.4-46.3) RDW Coefficient of Variation 16.3 % (11.5-14.5) Immature Granulocyte % (Auto) 0.3 % Immature Granulocyte # (Auto) 0.03 K/uL (0.00-0.02) Anion Gap 4.0 mmol/L (3-11) Est Creatinine Clear Calc Drug Dose 95.4 ml/min Estimated GFR () 88.8 Estimated GFR (Non- 76.6 BUN/Creatinine Ratio 15.4 (10-20) Calcium Level 9.1 mg/dl (8.5-10.1) Total Bilirubin 0.7 mg/dl (0.2-1) Direct Bilirubin 0.3 mg/dl (0-0.2) Aspartate Amino Transf (AST/SGOT) 88 U/L (15-37) Alanine Aminotransferase (ALT/SGPT) 68 U/L (12-78) Alkaline Phosphatase 146 U/L (45-117) Total Protein 7.8 gm/dl (6.4-8.2) Albumin 3.9 gm/dl (3.4-5.0) Lipase 519 U/L (73-393) Laboratory results per my review. ED Course 2021: Past medical records reviewed. The patient was evaluated in room C12A. A complete history and physical examination was performed. 2121: I reevaluated and updated the patient. 2136: Upon reevaluation, the patient appeared to have improvement of her symptoms. I discussed findings with the patient. She verbalized agreement of the treatment plan. The patient was discharged home. Medical Decision Differential diagnosis: Etiologies such as appendicitis, diverticulitis, PUD, biliary pathology, UTI, pancreatitis, obstruction, mesenteric ischemia, aortic pathology, infections, inflammatory bowel disease, renal colic, as well as others were entertained. This patient was evaluated and appeared to be in no significant distress. IV access was obtained and laboratory work was drawn. Physical examination is fairly unrevealing. The patient's abdomen is not tender. The patient's previous records indicates that she had an elevated lipase over 3000 with her previous episode. Currently the patient's white blood cell count is mildly elevated, lipase is 500. As the patient is nontender at this time, she will be discharged to follow-up with general surgery and follow-up with her primary care physician. Patient will return to the ER for worsening symptoms or any medical concerns. Medication Reconcilliation Current Medication List: was personally reviewed by me Blood Pressure Screening Patient's blood pressure: Elevated blood pressure Blood pressure disposition: Elevated BP felt to be situational Impression Primary Impression: Symptomatic cholelithiasis Scribe Attestation The scribe's documentation has been prepared under my direction and personally reviewed by me in its entirety. I confirm that the note above accurately reflects all work, treatment, procedures, and medical decision making performed by me. Departure Information Dispostion Home / Self-Care Referrals Jessi Garcia C.R.N.P (PCP) Forms HOME CARE DOCUMENTATION FORM, IMPORTANT VISIT INFORMATION Patient Instructions My [facility] Additional Instructions Diagnosis: Symptomatic cholelithiasis Drink plenty of clear fluids. Tylenol 650 mg every 6 hours as needed for pain. Maintain a low-fat diet. Follow-up with general surgery as soon as possible. Case management should contact you in the morning to assist with scheduling. Return to the ER for worsening of symptoms or any medical concerns.
[2016-10-01 20:44] LABS: BASO % 0.3 %; BASO ABS # 0.03 K/uL (0-0.2); COMPLETE YES; EOS % 0.8 %; HEMATOCRIT 40.4 % (37-47); IG% 0.3 %; LYMPH % 12.7 %; MEAN CELL VOLUME 89.4 fL (80-100); MEAN CORPUSCULAR HGB CONC 32.4 g/dl (32-36); MEAN PLATELET VOLUME 10.8 fL (7.4-10.4); MONO % 9.1 %; NEUT % 76.8 %; PLATELET COUNT 294 K/uL (130-400); RED BLOOD COUNT 4.52 M/uL (4.2-5.4); WHITE BLOOD COUNT 11.77 K/uL (4.8-10.8)
[2016-10-01 20:58] LABS: BUN/CREATININE RATIO 15.4 (10-20); CALCIUM 9.1 mg/dl (8.5-10.1); POTASSIUM 4.5 mmol/L (3.5-5.1)
[2016-10-01] MEDS ORDERED: BCPILLS PO (21:02)
[2016-10-01 21:40] VITALS: BP 138/88; PULSE 81; TEMP 36.9; O2SAT 97
== END 2016-10-01 21:41 | disposition home or self-care (01) ==
LOC: C.EDB 19:42 → C.EDC 21:41
DX: K80.20 Calculus of gallbladder without cholecystitis without obstruction (principal); Z79.3 Long term (current) use of hormonal contraceptives

== ENCOUNTER 2016-10-02 23:59 | Inpatient (IN) | payer OTHER ==
[~2016-10-02] VITALS: Ht 167.6 cm; Wt 91.9 kg
[~2016-10-02 23:59] MED LIST changes: -OXYC-57 PO
[2016-10-03] MEDS ORDERED: HYDROmorphone INJ 1 MG/ML SYR IV STA (00:28)
[2016-10-03] MEDS ORDERED: SODIUM CHLORIDE 0.9% 1000ML 1,000 ML IV STA (00:28)
[2016-10-03] MEDS ORDERED: ONDANSETRON INJ 2 MG/ML 2 ML VIAL IV STA (00:28)
[2016-10-03] MEDS ORDERED: SODIUM CHLORIDE 0.9% 500ML 500 ML IV STA (00:28)
[2016-10-03 00:46] LABS: BASO % 0.4 %; BASO ABS # 0.04 K/uL (0-0.2); COMPLETE YES; EOS % 1.8 %; HEMATOCRIT 39.8 % (37-47); IG% 0.2 %; LYMPH % 22.6 %; LYMPH ABS # 2.24 K/uL (1.2-3.4); MEAN CORPUSCULAR HEMOGLOBIN 29.3 pg (25-34); MEAN CORPUSCULAR HGB CONC 32.9 g/dl (32-36); MEAN PLATELET VOLUME 10.5 fL (7.4-10.4); MONO % 10.4 %; NEUT % 64.6 %; PLATELET COUNT 316 K/uL (130-400); RED BLOOD COUNT 4.47 M/uL (4.2-5.4); WHITE BLOOD COUNT 9.89 K/uL (4.8-10.8)
[2016-10-03 01:03] LABS: URINE APPEARANCE CLOUDY (CLEAR); URINE COLOR DK YELLOW; URINE EPITHELIAL CELL AUTO >30 /lpf (0-5); URINE NITRITE NEG (NEG); URINE PH 5.5 (4.5-7.5); URINE SPECIFIC GRAVITY 1.027 (1.000-1.030); UROBILINOGEN NEG (NEG)
--- NOTE | 2016-10-03 01:10 | EMERGENCY ROOM VISIT NOTE ---
History Report prepared by Kirstin: Tatiana Vega Under the Supervision of: Dr. Marta Gonzalez D.O. First contact with patient: 00:18 Chief Complaint: GI ASSESSMENT Stated Complaint: GALLBLADDER ATTACK History of Present Illness The patient is a 30 year old female who presents to the Emergency Room with complaints of an episode of severe nausea starting this evening. The patient states that she has gallstones and is scheduled to see a surgeon in 14 days. The patient complains of abdominal pain. She states that she ate rice and applesauce for dinner, a salad for lunch, and [employer] cereal for breakfast. She states that usually when she vomits the pain goes away, but tonight it seems to worsen with vomiting. The patient denies alcohol use, diabetes, leg cramping, and leg pain. She notes her grandmother had issues with her gallbladder. Source of History: patient Onset: this evening Position: other (global) Symptom Intensity: severe Quality: other (global) Timing: other (episode) Modifying Factors (Worsening): other (vomiting) Associated Symptoms: + vomiting, + abdominal pain Note: The patient denies alcohol use, diabetes, leg cramping, and leg pain. Review of Systems See HPI for pertinent positives & negatives. A total of 10 systems reviewed and were otherwise negative. Past Medical & Surgical Medical Problems: (1) Acute cholecystitis due to biliary calculus (2) Spontaneous onset of labor (3) Uterine contractions Family History Cancer Diabetes mellitus Heart disease Hypertension Lung disease Social History Smoking Status: Former Smoker Alcohol Use: none Marital Status: Housing Status: lives with family Occupation Status: employed Current/Historical Medications Scheduled Control Pills ( Control Pills), 1 TAB PO DAILY Allergies Coded Allergies: Ibuprofen (Verified Allergy, Mild, ANAPHYLAXIS, 08/19/16) swelling Physical Exam Vital Signs Date Time Temp Pulse Resp B/P (MAP) Pulse Ox O2 Delivery O2 Flow Rate FiO2 10/03/16 02:13 37.0 76 112/74 98 Room Air 10/03/16 00:13 36.6 83 18 140/90 94 Room Air Physical Exam HEENT: Head - normocephalic and atraumatic Pupils are equal, round, and reactive to light. Extraocular eye muscles are intact, and sclera are anicteric. Nose - moist nasal mucosa without discharge. Mouth - moist buccal mucosa. Oropharynx is nonerythematous and there is no tonsillar exudate or edema noted. Neck: Supple; no JVD, nuchal rigidity, cervical lymphadenopathy. Heart: Regular rate and rhythm. There is a normal S1 and S2 with no murmurs, clicks, or gallops appreciated. Lungs: Clear to auscultation bilaterally with no wheezes, rales, or rhonchi. Abdomen: Soft, epigastric and RUQ abdominal pain with palpation, nondistended, with good bowel sounds. There are no palpable pulsatile masses or hepatosplenomegaly. There is no guarding, rigidity, or rebound noted. Extremities: No evidence of cyanosis, clubbing, or edema. There are easily palpable peripheral pulses. Skin: warm and dry with good turgor and no rashes. Medical Decision & Procedures Laboratory Results 10/03/16 00:35 Red Blood Count 4.47, Mean Corpuscular Volume 89.0, Mean Corpuscular Hemoglobin 29.3, Mean Corpuscular Hemoglobin Concent 32.9, Mean Platelet Volume 10.5, Neutrophils (%) (Auto) 64.6, Lymphocytes (%) (Auto) 22.6, Monocytes (%) (Auto) 10.4, Eosinophils (%) (Auto) 1.8, Basophils (%) (Auto) 0.4, Neutrophils # (Auto ) 6.38, Lymphocytes # (Auto) 2.24, Monocytes # (Auto) 1.03, Eosinophils # (Auto ) 0.18, Basophils # (Auto) 0.04 10/03/16 00:35 Test 10/03/16 00:35 10/03/16 00:49 White Blood Count 9.89 K/uL (4.8-10.8) Red Blood Count 4.47 M/uL (4.2-5.4) Hemoglobin 13.1 g/dL (12.0-16.0) Hematocrit 39.8 % (37-47) Mean Corpuscular Volume 89.0 fL (80-100) Mean Corpuscular Hemoglobin 29.3 pg (25-34) Mean Corpuscular Hemoglobin Concent 32.9 g/dl (32-36) Platelet Count 316 K/uL (130-400) Mean Platelet Volume 10.5 fL (7.4-10.4) Neutrophils (%) (Auto) 64.6 % Lymphocytes (%) (Auto) 22.6 % Monocytes (%) (Auto) 10.4 % Eosinophils (%) (Auto) 1.8 % Basophils (%) (Auto) 0.4 % Neutrophils # (Auto) 6.38 K/uL (1.4-6.5) Lymphocytes # (Auto) 2.24 K/uL (1.2-3.4) Monocytes # (Auto) 1.03 K/uL (0.11-0.59) Eosinophils # (Auto) 0.18 K/uL (0-0.5) Basophils # (Auto) 0.04 K/uL (0-0.2) RDW Standard Deviation 53.1 fL (36.4-46.3) RDW Coefficient of Variation 16.2 % (11.5-14.5) Immature Granulocyte % (Auto) 0.2 % Immature Granulocyte # (Auto) 0.02 K/uL (0.00-0.02) Anion Gap 5.0 mmol/L (3-11) Est Creatinine Clear Calc Drug Dose 86.9 ml/min Estimated GFR () 79.1 Estimated GFR (Non- 68.3 BUN/Creatinine Ratio 12.8 (10-20) Calcium Level 9.2 mg/dl (8.5-10.1) Lipase 1124 U/L (73-393) Urine Color DK YELLOW Urine Appearance CLOUDY (CLEAR) Urine pH 5.5 (4.5-7.5) Urine Specific [place] 1.027 (1.000-1.030) Urine Protein NEG (NEG) Urine Glucose (UA) NEG (NEG) Urine Ketones TRACE (NEG) Urine Occult Blood TRACE (NEG) Urine Nitrite NEG (NEG) Urine Bilirubin NEG (NEG) Urine Urobilinogen NEG (NEG) Urine Leukocyte Esterase MODERATE (NEG) Urine WBC (Auto) >30 /hpf (0-5) Urine RBC (Auto) 0-4 /hpf (0-4) Urine Hyaline Casts (Auto) 0 /lpf (0-5) Urine Epithelial Cells (Auto) >30 /lpf (0-5) Urine Bacteria (Auto) 2+ (NEG) Urine Pathogenic Casts /lpf (0) Urine Test NEG (NEG) Laboratory results per my review. Medications Administered Medications (Trade) Dose Ordered Sig/Ling Route Start Time Stop Time Status Last Admin Dose Admin Ondansetron HCl (Zofran Inj) 4 mg NOW STAT IV 10/03/16 00:28 10/03/16 00:30 DC 10/03/16 00:44 4 MG Sodium Chloride 500 ml @ 999 mls/hr Q31M STAT IV 10/03/16 00:28 10/03/16 00:58 DC 10/03/16 00:45 999 MLS/HR Sodium Chloride 1,000 ml @ 250 mls/hr Q4H STAT IV 10/03/16 00:28 10/03/16 03:53 DC 10/03/16 00:45 250 MLS/HR Hydromorphone HCl (Dilaudid Inj) 1 mg NOW STAT IV 10/03/16 00:28 10/03/16 00:30 DC 10/03/16 00:44 1 MG Procedure 0028: Ordered Dilaudid Inj 1 mg IV, NSS 1000 ml @ 250 mls/hr IV, NSS 500 ml @ 999 mls/hr IV, Zofran Inj 4 mg IV. ED Course 0024: Past medical records reviewed. The patient was evaluated in room B8. A complete history and physical exam was performed. An IV lock was initiated and labs are drones above. 0028: Ordered Dilaudid Inj 1 mg IV, NSS 1000 ml @ 250 mls/hr IV, NSS 500 ml @ 999 mls/hr IV, Zofran Inj 4 mg IV. 0143: I reevaluated the patient and she is much more comfortable. I informed her of her test results and the treatment plan. She verbalized understanding and agreement. 0147: Discussed the patient's case with Dr. Amador. She wants medicine to admit and GI to consult. 0207: Discussed the patient's case Dr. Ruiz. The patient will be evaluated for further management. Medical Decision This is a 22-year-old female patient presents to the emergency department with epigastric abdominal pain and extreme nausea and vomiting. Differential diagnoses include gallstone pancreatitis, cholecystitis, cholelithiasis, colitis. LABS: Negative . Urine has trace ketones and trace blood. Greater than 30 white blood cells. 2+ bacteria. Moderate leukocyte esterase. Normal white blood cell. Normal H & H. Lipase 1124. Total bilirubin of 1.4, up form yesterday at 0.7. AST 113. ALT 147. Alkaline phosphatase 202. All elevated compared to yesterdays labs. The patient has history of gallstones and presents tonight with epigastric and right upper quadrant abdominal pain along with vomiting. Laboratory studies indicate pancreatitis. This represents acute gallstone pancreatitis and she will be admitted to the hospital. She is currently comfortable and hemodynamically stable. Consults Time Called: 0145 Consulting Physician: Dr. Amador Returned Call: [phone] Discussed the patient's case with Dr. Amador. She wants medicine to admit and GI to consult. Additional Consults: Time Called: 0205 Consulted Physician: Dr. Ruiz Returned Call: [phone] Additional Comments: Discussed the patient's case Dr. Ruiz. The patient will be evaluated for further management. Impression Primary Impression: Gall stone pancreatitis Scribe Attestation The scribe's documentation has been prepared under my direction and personally reviewed by me in its entirety. I confirm that the note above accurately reflects all work, treatment, procedures, and medical decision making performed by me. Departure Information Dispostion Being Evaluated By Hospitalist Referrals Jessi Garcia, C.R.N.P (PCP) Patient Instructions [facility]
[2016-10-03 01:16] LABS: MANUAL MICROSCOPIC REQUIRED? NO; REVIEW REQ? YES; URINE BILIRUBIN NEG (NEG)
[2016-10-03 01:31] LABS: BUN/CREATININE RATIO 12.8 (10-20); CALCIUM 9.2 mg/dl (8.5-10.1); CREATININE 1.1 mg/dl (0.60-1.20); POTASSIUM 3.7 mmol/L (3.5-5.1)
[2016-10-03] MEDS ORDERED: ACETAMINOPHEN 325 MG TAB PO PRN (02:45)
[2016-10-03] MEDS ORDERED: HYDROmorphone INJ 1 MG/ML SYR IV PRN (02:45)
--- NOTE | 2016-10-03 03:05 | History and Physical ---
History & Physical Date & Time of Service: Oct 03, 2016 at 02:51 Chief Complaint: Gallbladder Attack Primary Care Physician: Jessi Garcia C.R.N.P History of Present Illness Source: patient 30 y/o F Hx gallstone pancreatitis 08/18. She may have passed a stone at the time and is scheduled for elective cholecystitis in November. She gave 08/18 and the surgery was therefore delayed. The pt presents with upper quadrant abdominal pain and nausea. She denies fevers or rigors. Iintial LFTs and lipase are elevated. Past Medical/Surgical History Gallstone pancreatitis Family History Cancer Diabetes mellitus Heart disease Hypertension Lung disease Social History Smoking Status: Former Smoker Marital Status: Occupational Status: employed Allergies Coded Allergies: Ibuprofen (Verified Allergy, Mild, ANAPHYLAXIS, 08/19/16) swelling Home Medications Scheduled Control Pills ( Control Pills), 1 TAB PO DAILY Review of Systems Constitutional: No fever, No chills, No sweats Eyes: No worsening of vision, No eye pain ENT: No hearing loss, No unusual epistaxis, No nasal symptoms Respiratory: No cough, No sputum, No wheezing Cardiovascular: No chest pain, No orthopnea, No PND Abdomen: + pain, + nausea, No vomiting Musculoskeletal: No joint pain, No muscle pain Genitourinary - Female: No dysuria, No urinary frequency, No urinary urgency Neurologic: No memory loss, No paralysis, No weakness Psychiatric: No depression symptoms Endocrine: No fatigue Hematologic / Lymphatic: No abnormal bleeding/bruising Integumentary: No rash Physical Exam Vital Signs Date Time Temp Pulse Resp B/P (MAP) Pulse Ox O2 Delivery O2 Flow Rate FiO2 10/03/16 02:13 37.0 76 112/74 98 Room Air 10/03/16 00:13 36.6 83 18 140/90 94 Room Air General Appearance: WD/WN, no apparent distress Head: normocephalic Eyes: normal inspection ENT: normal ENT inspection, pharynx normal Neck: supple, no JVD Respiratory/Chest: chest non-tender, lungs clear, normal breath sounds Cardiovascular: regular rate, rhythm, no edema, no gallop, no JVD, no murmur, normal peripheral pulses Abdomen/GI: normal bowel sounds, non tender, soft, + pertinent finding (does not have abdominal tenderness after receiving narcotics in the ER) Back: normal inspection, no CVA tenderness Extremities/Musculoskelatal: normal inspection, no calf tenderness, normal capillary refill, no pedal edema, normal range of motion 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, no motor/sensory deficits, normal mood/affect, oriented x 3 Skin: normal color, warm/dry, no rash Diagnostics Laboratory Results Results Past 24 Hours Test 10/03/16 00:35 10/03/16 00:49 Range/Units White Blood Count 9.89 4.8-10.8 K/uL Red Blood Count 4.47 4.2-5.4 M/uL Hemoglobin 13.1 12.0-16.0 g/dL Hematocrit 39.8 37-47 % Mean Corpuscular Volume 89.0 80-100 fL Mean Corpuscular Hemoglobin 29.3 25-34 pg Mean Corpuscular Hemoglobin Concent 32.9 32-36 g/dl Platelet Count 316 130-400 K/uL Mean Platelet Volume 10.5 7.4-10.4 fL Neutrophils (%) (Auto) 64.6 % Lymphocytes (%) (Auto) 22.6 % Monocytes (%) (Auto) 10.4 % Eosinophils (%) (Auto) 1.8 % Basophils (%) (Auto) 0.4 % Neutrophils # (Auto) 6.38 1.4-6.5 K/uL Lymphocytes # (Auto) 2.24 1.2-3.4 K/uL Monocytes # (Auto) 1.03 0.11-0.59 K/uL Eosinophils # (Auto) 0.18 0-0.5 K/uL Basophils # (Auto) 0.04 0-0.2 K/uL RDW Standard Deviation 53.1 36.4-46.3 fL RDW Coefficient of Variation 16.2 11.5-14.5 % Immature Granulocyte % (Auto) 0.2 % Immature Granulocyte # (Auto) 0.02 0.00-0.02 K/uL Sodium Level 140 136-145 mmol/L Potassium Level 3.7 3.5-5.1 mmol/L Chloride Level 104 98-107 mmol/L Carbon Dioxide Level 31 21-32 mmol/L Anion Gap 5.0 3-11 mmol/L Blood Urea Nitrogen 14 7-18 mg/dl Creatinine 1.10 0.60-1.20 mg/dl Est Creatinine Clear Calc Drug Dose 86.9 ml/min Estimated GFR () 79.1 Estimated GFR (Non- 68.3 BUN/Creatinine Ratio 12.8 10-20 Random Glucose 119 70-99 mg/dl Calcium Level 9.2 8.5-10.1 mg/dl Total Bilirubin 1.4 0.2-1 mg/dl Direct Bilirubin 0.7 0-0.2 mg/dl Aspartate Amino Transf (AST/SGOT) 113 15-37 U/L Alanine Aminotransferase (ALT/SGPT) 147 12-78 U/L Alkaline Phosphatase 202 45-117 U/L Total Protein 8.1 6.4-8.2 gm/dl Albumin 4.0 3.4-5.0 gm/dl Lipase 1124 73-393 U/L Urine Color DK YELLOW Urine Appearance CLOUDY CLEAR Urine pH 5.5 4.5-7.5 Urine Specific [place] 1.027 1.000-1.030 Urine Protein NEG NEG Urine Glucose (UA) NEG NEG Urine Ketones TRACE NEG Urine Occult Blood TRACE NEG Urine Nitrite NEG NEG Urine Bilirubin NEG NEG Urine Urobilinogen NEG NEG Urine Leukocyte Esterase MODERATE NEG Urine WBC (Auto) >30 0-5 /hpf Urine RBC (Auto) 0-4 0-4 /hpf Urine Hyaline Casts (Auto) 0 0-5 /lpf Urine Epithelial Cells (Auto) >30 0-5 /lpf Urine Bacteria (Auto) 2+ NEG Urine Pathogenic Casts 0 /lpf Urine Test NEG NEG Impression Assessment and Plan 30 y/o F Hx gallstone pancreatitis 08/18. She may have passed a stone at the time and is scheduled for elective cholecystitis in November. She gave 08/18 and the surgery was therefore delayed. The pt presents with upper quadrant abdominal pain and nausea. She denies fevers or rigors. Initial LFTs and lipase are elevated. The pt will be kept NPO, provided with narcotics, antiemetics and IVF - her surgeon has been consulted. Full code, SCDs Total time for this admit including review of labs, meds, imaging, recent records - discussion with pt and ER attending 34 min Level of Care Med/Surg Resuscitation Status FULL RESUSCITATION VTE Prophylaxis VTE Risk Assessment Done? Y/N: Yes Risk Level: Low Given or contraindicated: SCD's
[2016-10-03 03:40] VITALS: BP 126/77; PULSE 71; TEMP 36.6; O2SAT 98; Ht 167.6 cm; Wt 91.9 kg
[2016-10-03] MEDS: D5NSS + 20MEQ KCL 1,000 ML IV SCH ×3 (04:02→20:58)
[2016-10-03 07:35] VITALS: BP 103/64; PULSE 67; TEMP 37; O2SAT 97
[2016-10-03] MEDS ORDERED: NURSING VERBAL MED ORDER ONE (09:15)
--- NOTE | 2016-10-03 09:40 | Surgery Consultation ---
Consultation Date of Consultation: Oct 03, 2016. Attending Physician: Johanna Gunter MD History of Present Illness 30 y/o F Hx gallstone pancreatitis 08/18. pt was adimtted to hospital today for abdominal pain with nausea and vomiting, cresencio pain is located at epigastric area , pt denies fever, no diarrhea, pt had U/S (09/07/2016) which showed cholelithiasis. Past Medical/Surgical History Medical Problems: (1) Gall stone pancreatitis Status: Acute (2) Symptomatic cholelithiasis Status: Acute Family History Cancer Diabetes mellitus Heart disease Hypertension Lung disease Social History Smoking Status: Former Smoker Alcohol Use: occasionally Drug Use: none Marital Status: Housing Status: lives with family Occupation Status: employed Allergies Coded Allergies: Ibuprofen (Verified Allergy, Mild, ANAPHYLAXIS, 08/19/16) swelling Home Medications Scheduled Control Pills ( Control Pills), 1 TAB PO DAILY Current Inpatient Medications Current Inpatient Medications Medications (Trade) Dose Ordered Sig/Ling Route Start Time Stop Time Status Last Admin Dose Admin Acetaminophen (Tylenol Tab) 650 mg Q4H PRN PO 10/03/16 02:45 11/02/16 02:44 Ondansetron HCl (Zofran Inj) 4 mg Q6H PRN IV 10/03/16 02:45 11/02/16 02:44 Hydromorphone HCl (Dilaudid Inj) 1 mg Q4H PRN IV 10/03/16 02:45 10/17/16 02:44 10/03/16 09:06 1 MG Potassium Chloride/Dextrose/ Sod Cl 1,000 ml @ 100 mls/hr Q10H IV 10/03/16 04:15 11/02/16 04:14 10/03/16 04:02 100 MLS/HR Miscellaneous Information (Nursing Verbal Med Order) 1 ea ONE ONCE N/A 10/03/16 09:15 10/03/16 09:16 UNV Review of Systems Constitutional: No fever, No chills, No sweats, No weight loss, No weakness, No fatigue, No problem reported Eyes: No worsening of vision, No eye pain, No redness, No discharge, No diplopia, No problem reported ENT: No hearing loss, No unusual epistaxis, No nasal symptoms, No sore throat, No tinnitus, No dental problems, No trouble swallowing, No problem reported Respiratory: No cough, No sputum, No wheezing, No shortness of breath, No dyspnea on exertion, No dyspnea at rest, No hemoptysis, No problem reported Cardiovascular: No chest pain, No orthopnea, No PND, No edema, No claudication , No palpitations, No problem reported Abdomen: + pain, + nausea, + vomiting Musculoskeletal: No joint pain, No muscle pain, No swelling, No calf pain, No problem reported Genitourinary - Female: No dysuria, No urinary frequency, No urinary urgency, No urinary incontinence, No urinary retention, No hematuria, No dysmenorrhea, No menorrhagia, No metrorrhagia, No rash, No vaginal bleeding, No vaginal discharge, No vaginal itching, No vulvodynia, No , No problem reported Neurologic: No memory loss, No paralysis, No weakness, No numbness/tingling, No vertigo, No balance problems, No problem reported Psychiatric: No depression symptoms, No anhedonism, No anxiety, No insomnia, No substance abuse, No problem reported Endocrine: No fatigue, No excessive thirst, No excessive urination, No problem reported Hematologic / Lymphatic: No abnormal bleeding/bruising, No clotting problems, No swollen lymph nodes, No night sweats, No problem reported Physical Exam Date Time Temp Pulse Resp B/P (MAP) Pulse Ox O2 Delivery O2 Flow Rate FiO2 10/03/16 07:35 37.0 67 16 103/64 (77) 97 Room Air 10/03/16 03:40 36.6 71 18 126/77 (93) 98 Room Air 10/03/16 03:40 36.6 71 18 126/77 98 Room Air 10/03/16 03:29 81 100/54 98 10/03/16 03:24 81 100/54 98 Room Air 10/03/16 02:13 37.0 76 112/74 98 Room Air 10/03/16 00:13 36.6 83 18 140/90 94 Room Air General Appearance: WD/WN, no apparent distress Head: normocephalic Eyes: normal inspection ENT: normal ENT inspection Neck: supple, no JVD Respiratory/Chest: chest non-tender, lungs clear, normal breath sounds Cardiovascular: regular rate, rhythm, no edema, no gallop, no JVD Abdomen/GI: normal bowel sounds, non tender, soft, no organomegaly Extremities/Musculoskelatal: normal inspection, no calf tenderness, normal capillary refill Neurologic/Psych: no motor/sensory deficits, alert, normal mood/affect Skin: normal color, warm/dry, no rash Laboratory Results Last 24 Hours Test 10/03/16 00:35 10/03/16 00:49 10/03/16 07:49 White Blood Count 9.89 K/uL Red Blood Count 4.47 M/uL Hemoglobin 13.1 g/dL Hematocrit 39.8 % Mean Corpuscular Volume 89.0 fL Mean Corpuscular Hemoglobin 29.3 pg Mean Corpuscular Hemoglobin Concent 32.9 g/dl Platelet Count 316 K/uL Mean Platelet Volume 10.5 fL Neutrophils (%) (Auto) 64.6 % Lymphocytes (%) (Auto) 22.6 % Monocytes (%) (Auto) 10.4 % Eosinophils (%) (Auto) 1.8 % Basophils (%) (Auto) 0.4 % Neutrophils # (Auto) 6.38 K/uL Lymphocytes # (Auto) 2.24 K/uL Monocytes # (Auto) 1.03 K/uL Eosinophils # (Auto) 0.18 K/uL Basophils # (Auto) 0.04 K/uL RDW Standard Deviation 53.1 fL RDW Coefficient of Variation 16.2 % Immature Granulocyte % (Auto) 0.2 % Immature Granulocyte # (Auto) 0.02 K/uL Sodium Level 140 mmol/L Potassium Level 3.7 mmol/L Chloride Level 104 mmol/L Carbon Dioxide Level 31 mmol/L Anion Gap 5.0 mmol/L Blood Urea Nitrogen 14 mg/dl Creatinine 1.10 mg/dl Est Creatinine Clear Calc Drug Dose 86.9 ml/min Estimated GFR () 79.1 Estimated GFR (Non- 68.3 BUN/Creatinine Ratio 12.8 Random Glucose 119 mg/dl Calcium Level 9.2 mg/dl Total Bilirubin 1.4 mg/dl 1.0 mg/dl Direct Bilirubin 0.7 mg/dl 0.4 mg/dl Aspartate Amino Transf (AST/SGOT) 113 U/L 108 U/L Alanine Aminotransferase (ALT/SGPT) 147 U/L 147 U/L Alkaline Phosphatase 202 U/L 157 U/L Total Protein 8.1 gm/dl 6.3 gm/dl Albumin 4.0 gm/dl 3.0 gm/dl Lipase 1124 U/L Urine Color DK YELLOW Urine Appearance CLOUDY Urine pH 5.5 Urine Specific [place] 1.027 Urine Protein NEG Urine Glucose (UA) NEG Urine Ketones TRACE Urine Occult Blood TRACE Urine Nitrite NEG Urine Bilirubin NEG Urine Urobilinogen NEG Urine Leukocyte Esterase MODERATE Urine WBC (Auto) >30 /hpf Urine RBC (Auto) 0-4 /hpf Urine Hyaline Casts (Auto) 0 /lpf Urine Epithelial Cells (Auto) >30 /lpf Urine Bacteria (Auto) 2+ Urine Pathogenic Casts /lpf Urine Test NEG Assessment & Plan U/S study 09/07/2016, IMPRESSION: 1. Cholelithiasis without sonographic evidence of acute cholecystitis. 2. Mild hepatomegaly and hepatic steatosis. Assessment: a 30 yo female who presents with abdominal pain, nausea and vomiting , lipase high, DX pancreatitis, and cholelithiasis IMP: pancreatitis, and cholelithiasis Plan: NPO, IV fluid rate at 100ml/h start cipro + flagyl U/S study today for RUQ repeat labs in am, I recommend to laparoscopic cholecystectomy, possible open or cholangiogram tomorrow if lipase down to close normal, D/W benefits, risks and alternatives of the procedure, the risks- infection, bleeding, injury CBD, bowel, may need ERCP, pt understood, she agrees with the plan, I answered all questions,
[2016-10-03] MEDS: ONDANSETRON INJ 2 MG/ML 2 ML VIAL IV PRN (10:16)
[2016-10-03] MEDS: CIPROFLOXACIN / D5W 400 MG in PREMIXED IN D5W 200 ML IV SCH ×2 (10:23→21:59)
--- NOTE | 2016-10-03 11:23 | CONSULTATION REPORT ---
DATE OF CONSULTATION: 10/03/2016 DATE OF CONSULTATION: 10/03/2016 REASON FOR CONSULT: Cholelithiasis, pancreatitis. ATTENDING: Dr. Reyes. HISTORY OF PRESENT ILLNESS: The patient is a 30-year-old female who has been having some issues with the gallbladder and pancreatitis for the last several months. Her symptoms began during , but she thought this was just part of her symptoms. She had some abdominal pain the day she was discharged after delivery on 08/20/2016. She was back in the Emergency Room on 09/07/2016 with mild pancreatitis but wished to return home with her . She was then seen in the office a few weeks ago by Dr. Reyes and again hoped to defer surgery until later in the fall. She has been eating a bland diet. She has been in the Emergency Room 2 times in the past 3 days and last evening was admitted. She had epigastric pain, nausea and vomiting last evening This morning, her nausea has resolved and the pain is significantly improved. PAST MEDICAL HISTORY: Biliary pancreatitis. CURRENT MEDICATIONS: Dilaudid 1 mg IV q. 4 hours, Zofran 4 mg IV q. 6 hours, Tylenol 650 mg p.o. q. 4 hours, Cipro 400 mg IV q. 12 hours, Flagyl 500 mg IV q. 8 hours, IV fluids at 125 mL per hour. ALLERGIES: IBUPROFEN. OBJECTIVE: VITAL SIGNS: Temperature 37.0, pulse 67, respirations 16, blood pressure 103/64, pulse ox 97% on room air. HEAD, EYES, EARS, NOSE, AND THROAT: Unremarkable. HEART: Regular rate and rhythm. LUNGS: Clear to auscultation. ABDOMEN: Soft, nondistended. Minimal epigastric tenderness. SKIN: Warm and dry. LABORATORY DATA: At midnight white count of 9,000, hemoglobin 13.1, hematocrit 39.8, platelets 316,000. Sodium 140, potassium 3.7, BUN 14, creatinine 1.1, glucose 119. Bilirubin was 1.4, AST 113, ALT 147, alkaline phosphatase 202. Lipase was 1124. Bilirubin this morning was 1.0 with slight improvement of her AST, ALT and alkaline phosphatase. Lipase was not repeated. IMAGING: Ultrasound was not repeated. Previous showed cholelithiasis with common bile duct 0.4 cm on 09/07/2016. IMPRESSION: Biliary pancreatitis. PLAN: Would recommend laparoscopic cholecystectomy during this admission once her pancreatitis resolves hopefully within the next 24-48 hours. Repeat lipase in the morning. We have tentatively scheduled her for the OR Saturday morning. Will evaluate her tomorrow morning. AUGUSTINA
[2016-10-03] MEDS: METRONIDAZOLE / NSS 500 MG in PREMIXED NSS 100 ML IV SCH ×2 (12:36→20:58)
[2016-10-03 15:23] VITALS: BP 113/78; PULSE 65; TEMP 36.8; O2SAT 94
--- NOTE | 2016-10-03 19:46 | Progress Note ---
Progress Note Date of Service Oct 03, 2016. Progress Note Pt admitted after midnight. I have seen her, examined her, and reviewed the chart. SHe has been pain free since admission except for a headache when she received DIlaudid which is now gone. SHe is feeling very hungry. No other concerns. She is bottle feeding her 7 week old infant Vitals reviewed NAD RRR no mgr CTAB no wcr Abd +BS soft, ND, +mild TTP RUQ w/o guarding or rebound Ext no edema 30 yo female here with gallstone pancreatitis. -if LFTs and lipase improved in the AM, will get cholecystectomy tomorrow -continue IVFs -continue Cipro and Flagyl -pain control prn -continue NPO
[2016-10-03 23:06] VITALS: BP 126/84; PULSE 59; TEMP 37; O2SAT 97
[2016-10-04] MEDS: D5NSS + 20MEQ KCL 1,000 ML IV SCH ×3 (04:36→21:31)
[2016-10-04] MEDS: METRONIDAZOLE / NSS 500 MG in PREMIXED NSS 100 ML IV SCH ×3 (04:36→21:40)
--- NOTE | 2016-10-04 05:05 | PROGRESS NOTE ---
DATE: 10/04/2016 Yarely was seen in our office approximately 3 weeks ago after she was seen down at the Emergency Room for what appeared to be acute cholecystitis, probably common bile duct stone that passed with pancreatitis. At that time, she did not want to be admitted. Since she had a baby, she wanted to be discharged. We had seen her back in the office approximately 3 weeks ago where at that time we recommended that she undergo a laparoscopic cholecystectomy, intraoperative cholangiogram, but she wanted to wait until November to proceed. Apparently, she came in and got readmitted 2 days ago with pancreatitis. This morning, she is resting comfortably. She denies passing any flatus at this time. Her abdomen is fairly benign looking. Her temperature is 37, pulse 59, respiration 14, blood pressure 126/84. Laboratory henao, liver enzymes down yesterday. This morning's labs are pending. Lipase was 1124 and we will repeat it today, but I suspect she will be ready to proceed with laparoscopic cholecystectomy, intraoperative cholangiogram tomorrow. I do not see at this point to proceed with an MRCP, although we will get an intraoperative cholangiogram to visualize the duct to see if there is any debris or stone. AUGUSTINA
[2016-10-04 07:07] VITALS: BP 126/82; PULSE 56; TEMP 37; O2SAT 99
[2016-10-04 09:07] LABS: BASO % 0.7 %; BASO ABS # 0.03 K/uL (0-0.2); COMPLETE YES; EOS % 3.7 %; HEMATOCRIT 36.2 % (37-47); IG% 0.2 %; LYMPH % 27.8 %; LYMPH ABS # 1.28 K/uL (1.2-3.4); MEAN CELL VOLUME 90.3 fL (80-100); MEAN CORPUSCULAR HEMOGLOBIN 28.7 pg (25-34); MEAN CORPUSCULAR HGB CONC 31.8 g/dl (32-36); MEAN PLATELET VOLUME 10.6 fL (7.4-10.4); MONO % 11.7 %; NEUT % 55.9 %; PLATELET COUNT 238 K/uL (130-400); RED BLOOD COUNT 4.01 M/uL (4.2-5.4)
[2016-10-04 09:35] LABS: BUN/CREATININE RATIO 5.8 (10-20); CALCIUM 8.9 mg/dl (8.5-10.1); CREATININE 0.99 mg/dl (0.60-1.20); POTASSIUM 4.3 mmol/L (3.5-5.1)
--- NOTE | 2016-10-04 10:05 | Anesthesiology Progress Note ---
Anesthesia Progress Note Date of Service Oct 04, 2016. Progress Notes Ms. Angel is a 30 year old female who is scheduled for lap desiree on 10/05/[address] Reyes 2/2 gallstone pancreatitis. Patient recently had a child in August 2016 and was originally scheduled for outpatient lap desiree in november but was recently admitted 2/2 significant abdominal pain and found to have elevated LFTs and lipase. Patient has severe allergy to ibuprofen (lip swelling) . She had sedation previously for dental work but no hx/o general anesthesia. She is without chronic medical issues and quit smoking several years ago. Activity level is normal as she can easily walk stairs without CP or SOB. Airway exam notable for thick neck and small mouth opening with MP 3. She also has two broken teeth (nothing loose). Patient was consented for general anesthesia and all questions were answered. Of note, she is formula feeding her infant.
[2016-10-04] MEDS: CIPROFLOXACIN / D5W 400 MG in PREMIXED IN D5W 200 ML IV SCH ×2 (10:29→21:34)
--- NOTE | 2016-10-04 11:41 | Hospitalist Progress Note ---
Hospitalist Progress Note Date of Service Oct 04, 2016. Subjective Pt evaluation today including: conversation w/ patient Voiding: no voiding problems Feeling well. No abd pain at all. Is making urine, feeling very hungry. Lipase up today and TBili up but transaminases and alk phos decreased from previous. Plan for surgery tomorrow All Other Systems: Reviewed and Negative Objective Vital Signs Date Time Temp Pulse Resp B/P (MAP) Pulse Ox O2 Delivery O2 Flow Rate FiO2 10/04/16 07:07 37.0 56 19 126/82 (97) 99 Room Air 10/04/16 00:15 Room Air 10/03/16 23:06 37.0 59 14 126/84 (98) 97 Room Air 10/03/16 15:35 Room Air 10/03/16 15:23 36.8 65 16 113/78 (90) 94 Room Air Physical Exam General Appearance: WD/WN, no apparent distress Eyes: normal inspection, sclerae normal ENT: hearing grossly normal Neck: trachea midline Respiratory/Chest: lungs clear, normal breath sounds, no respiratory distress, no accessory muscle use Cardiovascular: regular rate, rhythm, no edema, no gallop, no murmur Abdomen: normal bowel sounds, non tender, soft, no organomegaly, no pulsatile mass Extremities: normal range of motion, non-tender, normal inspection, no pedal edema, no calf tenderness Neurologic/Psychiatric: alert, normal mood/affect, oriented x 3 Skin: normal color, warm/dry, no rash Laboratory Results Last 24 Hours Test 10/04/16 08:27 White Blood Count 4.60 K/uL Red Blood Count 4.01 M/uL Hemoglobin 11.5 g/dL Hematocrit 36.2 % Mean Corpuscular Volume 90.3 fL Mean Corpuscular Hemoglobin 28.7 pg Mean Corpuscular Hemoglobin Concent 31.8 g/dl Platelet Count 238 K/uL Mean Platelet Volume 10.6 fL Neutrophils (%) (Auto) 55.9 % Lymphocytes (%) (Auto) 27.8 % Monocytes (%) (Auto) 11.7 % Eosinophils (%) (Auto) 3.7 % Basophils (%) (Auto) 0.7 % Neutrophils # (Auto) 2.57 K/uL Lymphocytes # (Auto) 1.28 K/uL Monocytes # (Auto) 0.54 K/uL Eosinophils # (Auto) 0.17 K/uL Basophils # (Auto) 0.03 K/uL RDW Standard Deviation 54.4 fL RDW Coefficient of Variation 16.4 % Immature Granulocyte % (Auto) 0.2 % Immature Granulocyte # (Auto) 0.01 K/uL Sodium Level 142 mmol/L Potassium Level 4.3 mmol/L Chloride Level 110 mmol/L Carbon Dioxide Level 28 mmol/L Anion Gap 4.0 mmol/L Blood Urea Nitrogen 6 mg/dl Creatinine 0.99 mg/dl Est Creatinine Clear Calc Drug Dose 96.6 ml/min Estimated GFR () 89.9 Estimated GFR (Non- 77.6 BUN/Creatinine Ratio 5.8 Random Glucose 104 mg/dl Calcium Level 8.9 mg/dl Total Bilirubin 2.1 mg/dl Direct Bilirubin 1.1 mg/dl Aspartate Amino Transf (AST/SGOT) 53 U/L Alanine Aminotransferase (ALT/SGPT) 124 U/L Alkaline Phosphatase 157 U/L Total Protein 6.5 gm/dl Albumin 3.0 gm/dl Lipase 2649 U/L Assessment and Plan 30 y/o F with a h/o recent gallstone pancreatitis 08/18 that resolved. She was to have elective outpt cholecystectomy after seeing Dr. Reyes in the office a few weeks ago, but chose to delay until Nov. SHe represented again this admission with severe RUQ and epigastric abd pain and was found to have recurrent gallstone pancreatitis. She denies fevers or rigors. Initial LFTs and lipase are elevated. Gallstone pancreatitis-now completely asymptomatic however lipase doubled to 2000+, TBili up to 2.1, but LFTs otherwise trending downward. -continue NPO for now as is ordered an MRCP for this afternoon by Surgery -may need ERCP in OR in conjunction with lap desiree tomorrow if there is CBD stones -could possibly give clears diet after MRCP today if ok with Surgery-will defer to Surgery decide later -continue pain control prn, antiemetics and IVFs -appreciate Surgery consultation -continue empiric CIpro and Flagyl Full code, SCDs
[2016-10-04 15:15] VITALS: BP 143/89; PULSE 54; TEMP 36.9; O2SAT 97
--- NOTE | 2016-10-04 21:11 | DIAGNOSTIC IMAGING REPORT ---
MRCP CLINICAL HISTORY: Cholelithiasis. Right upper quadrant abdominal pain. Possible common bile duct calculi COMPARISON STUDY: Biliary ultrasound dated 09/07/2016 FINDINGS: There is a stone filled gallbladder. There is no biliary or pancreatic ductal dilatation. There are no ductal filling defects to indicate calculi. The pancreatic head appears plump but maintains a normal signal intensity. This is likely normal for age. There is no hydronephrosis. No hepatic masses are visualized. Spleen measures 11.4 cm. IMPRESSION: 1. Cholelithiasis 2. No ductal dilatation identified. No common bile duct calculi visualized Electronically signed by: Se Gardner M.D. 10/04/2016 9:10 PM Dictated Date/Time: 10/04/2016 9:06 PM
[2016-10-04 23:13] VITALS: BP 125/84; PULSE 55; TEMP 36.9; O2SAT 99
[2016-10-05] VITALS (9 sets, daily range): BP systolic 125–144; BP diastolic 82–91; PULSE 53–77; TEMP 36.8–37; O2SAT 96–100
[2016-10-05] MEDS: METRONIDAZOLE / NSS 500 MG in PREMIXED NSS 100 ML IV SCH (04:18)
[2016-10-05] MEDS: D5NSS + 20MEQ KCL 1,000 ML IV SCH ×3 (05:47→20:16)
[2016-10-05 06:49] LABS: BASO % 0.7 %; BASO ABS # 0.03 K/uL (0-0.2); COMPLETE YES; EOS % 3.1 %; HEMATOCRIT 35.9 % (37-47); IG% 0.2 %; LYMPH % 32.6 %; LYMPH ABS # 1.46 K/uL (1.2-3.4); MEAN CELL VOLUME 90.2 fL (80-100); MEAN CORPUSCULAR HEMOGLOBIN 29.1 pg (25-34); MEAN CORPUSCULAR HGB CONC 32.3 g/dl (32-36); MEAN PLATELET VOLUME 10.9 fL (7.4-10.4); MONO % 14.1 %; NEUT % 49.3 %; PLATELET COUNT 253 K/uL (130-400); RED BLOOD COUNT 3.98 M/uL (4.2-5.4); WHITE BLOOD COUNT 4.48 K/uL (4.8-10.8)
[2016-10-05 07:28] LABS: BUN/CREATININE RATIO 5.8 (10-20); CALCIUM 8.8 mg/dl (8.5-10.1); POTASSIUM 3.7 mmol/L (3.5-5.1)
--- NOTE | 2016-10-05 07:34 | PROGRESS NOTE ---
DATE: 10/05/2016 DATE: 10/05/2016 Yarely is resting comfortably. She is having no abdominal discomfort. She is passing flatus. She is not nauseated. The MRCP yesterday at least it was read was normal. She had a spike in her lipase yesterday to 2649, this morning is pending, but clinically she is resolving. She has no back pain and I think we could proceed with laparoscopic cholecystectomy, cholangiogram for today. Risk and complications were explained to the patient and we will proceed accordingly.
[2016-10-05] MEDS ORDERED: MIDAZOLAM HCL 1 MG/ML 2ML VIAL ONE (07:57)
[2016-10-05] MEDS ORDERED: FENTANYL CITRATE INJ 50 MCG/1 ML 2 ML VIAL ONE ×2 (07:57→10:56)
[2016-10-05] MEDS ORDERED: ATROPINE SULFATE 0.1 MG/ML 5ML SYR IV PRN (08:00)
[2016-10-05] MEDS ORDERED: EpHEDrine SULFATE INJ 50 MG/ML AMP IV PRN (08:00)
[2016-10-05] MEDS ORDERED: ONDANSETRON INJ 2 MG/ML 2 ML VIAL IV PRN (08:00)
[2016-10-05] MEDS ORDERED: CONRAY 60% 50 ML VIAL ONE (09:25)
[2016-10-05] MEDS ORDERED: LIDOCAINE/EPINEPHRINE 1% 20 ML VIAL ONE (09:25)
[2016-10-05] MEDS ORDERED: ROCURONIUM BROMIDE 10 MG/ML 5 ML VIAL ONE (10:08)
[2016-10-05] MEDS ORDERED: LARYING-O-JET KIT (LTA) ONE ×2 (10:08)
[2016-10-05] MEDS ORDERED: DEXAMETHASONE SOD INJ 4 MG/ML VIAL ONE (10:08)
[2016-10-05] MEDS ORDERED: ONDANSETRON INJ 2 MG/ML 2 ML VIAL ONE (10:08)
[2016-10-05] MEDS ORDERED: NEOSTIGMINE METHYLSULFATE 5 MG/5 ML SYR ONE (10:08)
[2016-10-05] MEDS ORDERED: PROPOFOL IV EMULSION 10 MG/ML 20 ML VIAL IV ONE (10:08)
[2016-10-05] MEDS ORDERED: LIDOCAINE HCL 2% 2 ML VIAL (20MG/ML) ONE (10:08)
[2016-10-05] MEDS ORDERED: GLYCOPYRROLATE INJ 0.2 MG/ML VIAL ONE (10:08)
[2016-10-05] MEDS ORDERED: GLUCAGON FOR INJ 1 MG VIAL ONE (10:20)
--- NOTE | 2016-10-05 10:52 | DIAGNOSTIC IMAGING REPORT ---
CHOLANGIOGRAM O.R. HISTORY: Post cholecystectomy. FLUOROSCOPY TIME: 2 seconds. FINDINGS: Fluoroscopy was provided for an intraoperative cholangiogram status post cholecystectomy. Contrast was injected through the cystic duct remnant. The common bile duct is normal in course and caliber. There are no filling defects seen within the common bile duct to suggest a retained stone. Contrast extends into the small bowel. There is no intrahepatic bile duct dilatation. IMPRESSION: Fluoroscopy provided for an intraoperative cholangiogram status post cholecystectomy. No filling defects within the common bile duct. The above report was generated using voice recognition software. It may contain grammatical, syntax or spelling errors. Electronically signed by: Giovanny Basilio M.D. 10/05/2016 10:50 AM Dictated Date/Time: 10/05/2016 10:50 AM
--- NOTE | 2016-10-05 10:57 | [facility] Operative Report ---
Operative Report Operative Date Oct 05, 2016. Pre-Operative Diagnosis Acute cholecystitis cholelothiasis with pancreatitis Post-Operative Diagnosis Same Procedure(s) Performed Laparoscopic cholecystectomy with Cholangiogram Surgeon Dr Reyes Adult Parole Officer Surgeon(s) Pieter Wynne PA-C Estimated Blood Loss 5ml Findings ccc Specimens A. Gallbladder Complication(s) graspers not working well made difficult dissection Description of Procedure lap desiree .c'gram [id number] I attest to the content of the Intraoperative Record and any orders documented therein. Any exceptions are noted below.
[2016-10-05] MEDS ORDERED: HYDROmorphone INJ 1 MG/ML SYR IV PRN (11:00)
[2016-10-05] MEDS ORDERED: OXYC-57 PO (11:03)
--- NOTE | 2016-10-05 11:04 | Discharge Instructions ---
Discharge Instructions Date of Service Oct 05, 2016. Admission Reason for Admission: Acute Cholecystitis Due To Biliary Calculus Discharge Discharge Diagnosis / Problem: laparoscopic cholecystectomy Discharge Goals Goal(s): Decrease discomfort Activity Recommendations Activity Limitations: as noted below Lifting Limitations: no more than 10 pounds Shower/Bathe: tomorrow Driving or Machine Use: resume 3 days after discharge . Instructions / Follow-Up Instructions / Follow-Up Dr. Reyes in 1 week, call [phone] to schedule Current Hospital Diet Patient's current hospital diet: Clear Liquid Diet Discharge Diet Recommended Diet: Low Fat Diet (for a few days) Procedures Procedures Performed: Laparoscopic cholecystectomy with Cholangiogram Pending Studies Studies pending at discharge: no Medical Emergencies . Who to Call and When: Medical Emergencies: If at any time you feel your situation is an emergency, please call 911 immediately. . Non-Emergent Contact Non-Emergency issues call your: Surgeon Call Non-Emergent contact if: you have a fever, temperature is above 101.5, your pain is not controlled, wound has increased pain, you have any medication questions . "Provider Documentation" section prepared by Pieter Wynne. . VTE Core Measure Inpt VTE Proph given/why not?: SCD's [place] Drug Monitoring Program Search Results: no issues identified
[2016-10-05] MEDS: FENTANYL CITRATE INJ 50 MCG/1 ML 2 ML VIAL IV PRN ×4 (11:06→11:22)
--- NOTE | 2016-10-05 11:18 | OPERATIVE REPORT ---
DATE OF OPERATION: 10/05/2016 PREOPERATIVE DIAGNOSIS: Chronic cholecystitis, cholelithiasis with secondary pancreatitis. POSTOPERATIVE DIAGNOSIS: Same. PROCEDURE: Laparoscopic cholecystectomy, intraoperative cholangiogram. SURGEON: Dr. Reyes. TRAVEL SPECIALIST: Efraín Wynne PA-C. OPERATION AND FINDINGS: SUMMARY: After induction of general endotracheal anesthesia the patient's abdomen was prepped with Betadine solution and properly draped. I made a small incision above the umbilicus and above the 2 perforations that she had in the skin from jewelry where we were able then to use Angelica clamps to grab the abdominal wall. Since she was she had a very lax abdomen. We elevated the fascia to the point that we placed Veress needle. First few times we were unable really to insufflate well even though the needle appeared to be in good position. We then finally we were able to establish a pneumoperitoneum. Once we had sufficient pressure to give us resistance we introduced a 5 mm trocar. We went without any difficulty followed by the scope. Point of entry inspected and no injury identified. At this point, we used a 2-0 Dexon suture to hold the trocar in the umbilical area in position. At this point, we placed the patient in reverse Trendelenburg and rotated to the left. We found the gallbladder to be obviously dilated. We placed a 5 mm epigastric, two 5 mm subcostal ports. We were able to place the gallbladder which was edematous and thick walled under tension. I tried aspirating really were not aspirate anything out, it seemed to be quite thickened. At this point, once we had elevated, we were able then to dissect out towards the neck of the gallbladder which was quite a significant amount of edema, dissected fairly easily, identified we were in the cystic duct. We clamped it proximally and then a small opening was made in the cystic duct with placing a #4 ureteral catheter transversing with a 14 Angiocath through the abdominal wall, we were able then to flush quite easily although we felt some resistance minimally. At this point, we used some contrast and initial cholangiogram showed cut-off at the distal common bile duct with no flow into the duodenum. At this point, we gave 1 mg of glucagon and flushed out the system more and then we were able to repeat cholangiogram which showed the duct still mildly dilated, but there was free flow into the duodenum. We could see the beginning of the pancreatic duct also. At this point we then removed the cholangiocath, the cystic duct was securely clipped twice, cystic artery anterior and posterior branch was doubly clipped and divided. Gallbladder was removed in the antegrade fashion. The graspers were very difficult to grab, the kept losing their catalyst recovery operator. 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 We were able then to free up the gallbladder from the liver bed, sufficient enough that we checked the hemostasis and appeared satisfactory. A few oozers were cauterized. The gallbladder was put in an Endopouch and taken out intact through the epigastric port. After completing this, we suctioned out the subhepatic suprahepatic area to the gallbladder fossa which basically shows some bleeders along the wall that we were able to cauterize. Hemostasis was quite satisfactory. I placed a camera subcostal port in the right upper quadrant and visualized the area of the umbilical area and there was no injury identified. No adhesion anterior abdominal wall. Individual trocars removed, last umbilical trocar. Wounds were closed with 4-0 Monocryl. Steri-Strips applied. The procedure was tolerated well by the patient and was taken to recovery room in good condition. Estimated blood loss approximately 5 mL. I attest to the content of the Intraoperative Record and any orders documented therein. Any exceptions are noted below. AUGUSTINA
[2016-10-05] MEDS: HYDROmorphone INJ 1 MG/ML SYR IV PRN ×3 (11:28→11:39)
--- NOTE | 2016-10-05 11:52 | Anesthesiology Progress Note ---
Anesthesia Post Op Note Date & Time Oct 05, 2016 at 11:52 Vital Signs Pain Intensity: 4 Vital Signs Past 12 Hours Date Time Temp Pulse Resp B/P (MAP) Pulse Ox O2 Delivery O2 Flow Rate FiO2 10/05/16 11:46 36.4 10/05/16 11:45 58 12 10/05/16 11:45 59 12 99 10/05/16 11:40 62 15 10/05/16 11:40 62 15 129/77 100 10/05/16 11:35 67 7 10/05/16 11:35 68 7 142/81 100 10/05/16 11:30 66 13 10/05/16 11:30 70 13 129/90 98 10/05/16 11:25 62 12 137/88 100 10/05/16 11:25 62 12 10/05/16 11:20 57 12 10/05/16 11:20 57 12 133/88 100 10/05/16 11:16 149/90 10/05/16 11:15 Nasal Cannula 3 10/05/16 11:15 72 15 100 10/05/16 11:15 71 15 10/05/16 11:10 80 20 10/05/16 11:10 79 20 150/92 100 10/05/16 11:05 71 19 148/100 100 10/05/16 11:05 75 19 10/05/16 11:01 155/94 10/05/16 11:00 85 19 10/05/16 11:00 85 19 92 10/05/16 10:55 36.8 75 16 155/94 98 Mask 10 10/05/16 08:13 36.8 61 18 126/85 (99) 98 Room Air 10/05/16 07:50 Room Air Notes Mental Status: alert / awake / arousable, participated in evaluation Pt Amnestic to Procedure: Yes Nausea / Vomiting: adequately controlled Pain: adequately controlled Airway Patency, RR, SpO2: stable & adequate BP & HR: stable & adequate Hydration State: stable & adequate Anesthetic Complications: no major complications apparent
[2016-10-05] MEDS: ONDANSETRON INJ 2 MG/ML 2 ML VIAL IV PRN (13:46)
--- NOTE | 2016-10-05 15:13 | Hospitalist Progress Note ---
Hospitalist Progress Note Date of Service Oct 05, 2016. Subjective Pt evaluation today including: conversation w/ patient pt having a lot of pain in the right shoulder, some in the abdomen s/p lap desiree this AM. SOme nausea. Ate a few pieces of Jello and some gingerale for lunch and couldn't eat any more due ot nausea. SHe definitely wants to stay overnight another night All Other Systems: Reviewed and Negative Objective Vital Signs Date Time Temp Pulse Resp B/P (MAP) Pulse Ox O2 Delivery O2 Flow Rate FiO2 10/05/16 14:22 36.8 77 16 131/82 (98) 98 Nasal Cannula 3.0 10/05/16 13:23 63 18 133/91 (105) 10/05/16 12:58 63 18 131/85 (100) 10/05/16 12:22 100 Nasal Cannula 3.0 10/05/16 12:20 37.0 65 18 139/91 (107) 99 Nasal Cannula 3.0 10/05/16 12:07 58 14 100 10/05/16 12:07 57 16 10/05/16 12:05 133/74 10/05/16 12:02 54 16 100 10/05/16 12:02 54 10/05/16 12:00 126/79 10/05/16 11:57 56 13 100 10/05/16 11:57 55 13 10/05/16 11:55 131/86 10/05/16 11:52 64 10/05/16 11:52 72 16 100 10/05/16 11:50 127/77 10/05/16 11:47 73 23 10/05/16 11:47 75 23 100 10/05/16 11:46 36.4 10/05/16 11:45 58 12 10/05/16 11:45 59 12 99 10/05/16 11:40 62 15 10/05/16 11:40 62 15 129/77 100 10/05/16 11:35 67 7 10/05/16 11:35 68 7 142/81 100 10/05/16 11:30 66 13 10/05/16 11:30 70 13 129/90 98 10/05/16 11:25 62 12 137/88 100 10/05/16 11:25 62 12 10/05/16 11:20 57 12 10/05/16 11:20 57 12 133/88 100 10/05/16 11:16 149/90 10/05/16 11:15 Nasal Cannula 3 10/05/16 11:15 72 15 100 10/05/16 11:15 71 15 10/05/16 11:10 80 20 10/05/16 11:10 79 20 150/92 100 10/05/16 11:05 71 19 148/100 100 10/05/16 11:05 75 19 10/05/16 11:01 155/94 10/05/16 11:00 85 19 10/05/16 11:00 85 19 92 10/05/16 10:55 36.8 75 16 155/94 98 Mask 10 10/05/16 08:13 36.8 61 18 126/85 (99) 98 Room Air 10/05/16 07:50 Room Air 10/04/16 23:20 Room Air 10/04/16 23:13 36.9 55 16 125/84 (98) 99 Room Air 10/04/16 15:15 Room Air 10/04/16 15:15 36.9 54 16 143/89 (107) 97 Room Air Physical Exam General Appearance: WD/WN, no apparent distress Eyes: normal inspection, sclerae normal ENT: hearing grossly normal Neck: trachea midline Respiratory/Chest: lungs clear, normal breath sounds, no respiratory distress, no accessory muscle use Cardiovascular: regular rate, rhythm, no edema, no gallop, no JVD, no murmur Abdomen: non tender, soft, no organomegaly, no pulsatile mass, + abnormal bowel sounds (hypoactive), + pertinent finding (port sites with steri strips in place) Extremities: non-tender, normal inspection, no pedal edema, no calf tenderness Neurologic/Psychiatric: alert, oriented x 3 Skin: no rash, + pallor Laboratory Results Last 24 Hours Test 10/05/16 06:06 White Blood Count 4.48 K/uL Red Blood Count 3.98 M/uL Hemoglobin 11.6 g/dL Hematocrit 35.9 % Mean Corpuscular Volume 90.2 fL Mean Corpuscular Hemoglobin 29.1 pg Mean Corpuscular Hemoglobin Concent 32.3 g/dl Platelet Count 253 K/uL Mean Platelet Volume 10.9 fL Neutrophils (%) (Auto) 49.3 % Lymphocytes (%) (Auto) 32.6 % Monocytes (%) (Auto) 14.1 % Eosinophils (%) (Auto) 3.1 % Basophils (%) (Auto) 0.7 % Neutrophils # (Auto) 2.21 K/uL Lymphocytes # (Auto) 1.46 K/uL Monocytes # (Auto) 0.63 K/uL Eosinophils # (Auto) 0.14 K/uL Basophils # (Auto) 0.03 K/uL RDW Standard Deviation 54.2 fL RDW Coefficient of Variation 16.2 % Immature Granulocyte % (Auto) 0.2 % Immature Granulocyte # (Auto) 0.01 K/uL Sodium Level 142 mmol/L Potassium Level 3.7 mmol/L Chloride Level 108 mmol/L Carbon Dioxide Level 29 mmol/L Anion Gap 5.0 mmol/L Blood Urea Nitrogen 6 mg/dl Creatinine 1.00 mg/dl Est Creatinine Clear Calc Drug Dose 95.6 ml/min Estimated GFR () 88.8 Estimated GFR (Non- 76.6 BUN/Creatinine Ratio 5.8 Random Glucose 102 mg/dl Calcium Level 8.8 mg/dl Magnesium Level 2.0 mg/dl Total Bilirubin 1.0 mg/dl Direct Bilirubin 0.5 mg/dl Aspartate Amino Transf (AST/SGOT) 34 U/L Alanine Aminotransferase (ALT/SGPT) 103 U/L Alkaline Phosphatase 143 U/L Total Protein 6.3 gm/dl Albumin 3.0 gm/dl Lipase 718 U/L Assessment and Plan 30 y/o F with a h/o recent gallstone pancreatitis 08/18 that resolved. She was to have elective outpt cholecystectomy after seeing Dr. Reyes in the office a few weeks ago, but chose to delay until Nov. She represented again this admission with severe RUQ and epigastric abd pain and was found to have recurrent gallstone pancreatitis. She denies fevers or rigors. Initial LFTs and lipase are elevated. Gallstone pancreatitis- lipase up to 2000+, TBili up to 2.1, but LFTs otherwise trending downward. Today all trending downward. Had lap desiree 10/05. Recovering from surgery, still with some postop nausea and right shoulder pain. MRCP and intraoperative cholangiogram without CBD stones. -Post-op Surgery management as per SUrgeon -adv diet as tolerated -continue pain control prn, antiemetics and IVFs -appreciate Surgery consultation -d/c'd empiric Cipro and Flagyl -SCDs Full code Dispo-to home likely tomorrow
[2016-10-05] MEDS: OXYCODONE/ACETAMINOPHEN 5-325 TAB PO PRN ×3 (15:27→19:16)
[2016-10-06] MEDS: OXYCODONE/ACETAMINOPHEN 5-325 TAB PO PRN (00:13)
[2016-10-06 03:39] VITALS: BP 119/72; PULSE 52; TEMP 36.7; O2SAT 97
[2016-10-06] MEDS: D5NSS + 20MEQ KCL 1,000 ML IV SCH (03:57)
[2016-10-06 05:56] LABS: BASO % 0.1 %; BASO ABS # 0.01 K/uL (0-0.2); COMPLETE YES; EOS % 0.2 %; HEMATOCRIT 34.9 % (37-47); IG% 0.2 %; LYMPH % 17.7 %; LYMPH ABS # 1.58 K/uL (1.2-3.4); MEAN CELL VOLUME 89.7 fL (80-100); MEAN CORPUSCULAR HGB CONC 32.4 g/dl (32-36); MEAN PLATELET VOLUME 10.9 fL (7.4-10.4); MONO % 11.7 %; NEUT % 70.1 %; PLATELET COUNT 256 K/uL (130-400); RED BLOOD COUNT 3.89 M/uL (4.2-5.4); WHITE BLOOD COUNT 8.91 K/uL (4.8-10.8)
[2016-10-06 06:31] LABS: BUN/CREATININE RATIO 5.5 (10-20); CALCIUM 8.6 mg/dl (8.5-10.1); CREATININE 0.88 mg/dl (0.60-1.20); MAGNESIUM 1.9 mg/dl (1.8-2.4)
[2016-10-06 07:15] VITALS: O2SAT 97
[2016-10-06 07:24] VITALS: BP 118/78; PULSE 59; TEMP 36.8; O2SAT 97
[2016-10-06 11:39] VITALS: BP 118/78; PULSE 59; TEMP 36.8; O2SAT 97
[2016-10-06] MEDS ORDERED: NURSING VERBAL MED ORDER ONE (11:45)
--- NOTE | 2016-10-10 16:13 | Discharge Summary ---
Discharge Summary Date of Service Oct 06, 2016. Discharge Summary Admission Date: Oct 03, 2016 at 02:41 Discharge Date: Oct 06, 2016 Discharge Disposition: Home Principal Diagnosis: Gallstone pancreatitis Problems/Secondary Diagnoses: Acute on chronic cholecystitis Cholelithiasis Elevated LFTs Procedures: 1. Laparoscopic cholecystectomy with Cholangiogram 2. MRCP CLINICAL HISTORY: Cholelithiasis. Right upper quadrant abdominal pain. Possible common bile duct calculi COMPARISON STUDY: Biliary ultrasound dated 09/07/2016 FINDINGS: There is a stone filled gallbladder. There is no biliary or pancreatic ductal dilatation. There are no ductal filling defects to indicate calculi. The pancreatic head appears plump but maintains a normal signal intensity. This is likely normal for age. There is no hydronephrosis. No hepatic masses are visualized. Spleen measures 11.4 cm. IMPRESSION: 1. Cholelithiasis 2. No ductal dilatation identified. No common bile duct calculi visualized Consultations: General Surgery Medication Reconciliation New Medications: Oxycodone/Acetaminophen 5MG/325MG (Percocet 5MG/325MG) Tab 1-2 TABLETS PO Q4H PRN for Pain, #30 TAB Continued Medications: Control Pills ( Control Pills) Tab 1 TAB PO DAILY, TAB Referrals At Discharge Follow up Referrals: Family Practice Referral - Within 1 Week with Geneva Leach Surgery Referral - Within 2 Weeks with Bj Reyes M.D. Discharge Exam Doing very well, tolerating a low fat diet. Some mild pain RUQ and right shoulder but improved from yesterday. No further N/V, is passing flatus, no BM yet. Is ambulating the halls. Review of Systems: Constitutional: No fever Eyes: No problem reported ENT: No problem reported Respiratory: No shortness of breath Cardiovascular: No chest pain Abdomen: + pain, No nausea, No vomiting Musculoskeletal: No problem reported Genitourinary - Female: + vaginal bleeding (mild, since started OCPs earlier this week then did not take them for the last few days, withdrawal bleeding) Neurologic: No problem reported Psychiatric: No problem reported Endocrine: No problem reported Hematologic / Lymphatic: No problem reported Integumentary: No problem reported Physical Exam: General Appearance: WD/WN, no apparent distress Eyes: normal inspection, sclerae normal ENT: hearing grossly normal Neck: trachea midline Respiratory/Chest: lungs clear, normal breath sounds, no respiratory distress, no accessory muscle use Cardiovascular: regular rate, rhythm, no edema, no gallop, no murmur, normal peripheral pulses Abdomen / GI: normal bowel sounds, soft, no organomegaly, no pulsatile mass , + tenderness (mild in RUQ w/o guarding or rebound), + pertinent finding ( steri strips in place over port sites on abdomen, no surrounding erythema, no drainage) Extremities: normal inspection, no calf tenderness, normal capillary refill , no pedal edema Neurologic/Psychiatric: alert, normal mood/affect, oriented x 3 Skin: normal color, warm/dry, no rash Hospital Course 30 y/o F with a h/o recent gallstone pancreatitis 08/18 that resolved. She was to have elective outpt cholecystectomy after seeing Dr. Reyes in the office a few weeks ago, but chose to delay until Nov. She represented again this admission with severe RUQ and epigastric abd pain and was found to have recurrent gallstone pancreatitis. She denies fevers or rigors. Initial LFTs and lipase are elevated. Gallstone pancreatitis- lipase up to 2000+, TBili up to 2.1, but LFTs otherwise trending downward. Today all trending downward. Had lap desiree 10/05. Recovering from surgery, still with some postop right shoulder pain but tolerating low fat diet, passing flatus. MRCP and intraoperative cholangiogram without CBD stones. -continue pain control prn -appreciate Surgery consultation -d/c'd empiric Cipro and Flagyl -dc to home with f/u with Surgery in 1 week Dispo-to home Total Time Spent: Greater than 30 minutes This includes examination of the patient, discharge planning, medication reconciliation, and communication with other providers. Discharge Instructions Please refer to the electronic Patient Visit Report (Discharge Instructions) for additional information. Follow-Up PCP within 1 week Surgery within 2 weeks as scheduled Additional Copies To [facility]; Bj Reyes M.D.
== END 2016-10-06 14:29 | disposition home or self-care (01) | DRG 419 ==
LOC: C.EDB 10-03 → C.MSW 10-03 02:41 → ENRESERV 10-03 02:55
PROVIDERS: ADMIT Internal Medicine; ATTEND Family Medicine
PROC: 0FT44ZZ Resection of Gallbladder, Percutaneous Endoscopic Approach (ICD-10-PCS; principal; 2016-10-05 10:00)
DX: K85.10 Biliary acute pancreatitis without necrosis or infection (principal); Z79.3 Long term (current) use of hormonal contraceptives; Z87.891 Personal history of nicotine dependence

== ENCOUNTER → 2016-10-12 | Outpatient (CLI) | payer OTHER ==
[~2016-10-12] MED LIST changes: +OXYC-57 PO
[2016-10-12 18:24] LABS: ALT/SGPT 66 U/L (12-78); AMYLASE 40 U/L (25-115); AST/SGOT 19 U/L (15-37); BLOOD UREA NITROGEN 17 mg/dl (7-18); BUN/CREATININE RATIO 15.7 (10-20); CALCIUM 9.1 mg/dl (8.5-10.1); CARBON DIOXIDE 27 mmol/L (21-32); CHLORIDE 105 mmol/L (98-107); GLUCOSE 82 mg/dl (70-99); POTASSIUM 4.1 mmol/L (3.5-5.1); SODIUM 138 mmol/L (136-145)
[2016-10-12 18:27] LABS: ALKALINE PHOSPHATASE 134 U/L (45-117)
== END | disposition home or self-care (01) ==
LOC: C.LABPVFM 10:00
PROVIDERS: ATTEND Nurse Practitioner Family
DX: R74.8 Abnormal levels of other serum enzymes (principal)